=== PATIENT | female | born 1945 | race Caucasian/White ===

== ENCOUNTER 2018-12-19 08:58 | Inpatient (IN) ==
--- NOTE | 2018-12-01 14:13 | PAT Medication Instructions ---
Medication Instructions Date of Service December 01, 2018 Home Medications aspirin [Ecotrin] 325 mg PO DAILY glimepiride 4 mg PO BID losartan-hydrochlorothiazide 1 tab PO QAM metformin 1,000 mg PO BID ASK your prescriber and surgeon aspirin [Ecotrin] 325 mg PO DAILY DO NOT take the morning of surgery glimepiride 4 mg PO BID losartan-hydrochlorothiazide 1 tab PO QAM metformin 1,000 mg PO BID Take evening before surgery glimepiride 4 mg PO BID metformin 1,000 mg PO BID Other Notes If you have any questions please call us at [phone] or [phone] or [phone] or [phone]
--- NOTE | 2018-12-02 13:44 | Anesthesiology Consultation ---
Date of Service December 02, 2018 Assessment & Plan (1) Encounter for pre-operative examination: Check BSG AM DOS Chart Review Chart Review: Patient seen in Pre Admission Testing Teaching & Discussion Pre-Anesthesia Teaching/Discussion Notes: Instructed NPO after midnight before surgery,except medications with 15 cc of water. Medication instructions provided according to the PAT guidelines. History Surgery Operation Date: 12/19/18 10:25 Proposed Procedures p L3-L5 Decompression and Fusion, Spinal Cord Monitoring - David Recinos DO Height/Weight Height: 5 ft 7 in Weight: 85.5 kg Allergies Allergy/AdvReac Type Severity Reaction Status Date / Time No Known Allergies Allergy Verified 11/25/18 14:09 Medications Home Medications Medication Instructions Recorded Confirmed Last Taken aspirin [Ecotrin] 325 mg PO DAILY 11/25/18 11/25/18 Unknown glimepiride 4 mg PO BID 11/25/18 11/25/18 Unknown losartan-hydrochlorothiazide 1 tab PO QAM 11/25/18 11/25/18 Unknown metformin 1,000 mg PO BID 11/25/18 11/25/18 Unknown Past Medical History Medical History Diabetes NIDDM 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); NO PERSONAL HX OF ISSUES History of blood transfusion S/P CHILDBIRTH/HEMORRHAGE History of kidney stones Hypertension Numbness and tingling RIGHT LEG D/T BULGING DISC Spinal stenosis Exercise / Class Metabolic Activity III < 4 Walking/Shop/Light housework (USES CANE PRN) Past Family History Family History Mother Family history of diabetes mellitus Grandmother (Maternal) Family history of diabetes mellitus Past Surgical History Surgical History History of cardiac cath REMOTE; NO STENTS History of carpal tunnel surgery of left wrist History of open reduction and internal fixation (ORIF) procedure MIDDLE FINGER RIGHT History of rectal surgery FISTULA REPAIR Hx of cystoscopy FOR STONE REMOVAL Hx of hysterectomy Past Anesthesia History No Family Hx of Anesthesia Complications and Other Patient states she had post-op dyspnea/"gasping" after anesthesia emergence from anal fistula. Patient subsequently had finger ORIF surgery without issue. History of PONV No Hx of PONV and Hx of Motion Sickness Social History Smoking Status: Never smoker Do You Dip or Chew Tobacco: No Hx Alcohol Use: No Hx Substance Use: No Review of Systems Patient denies chest pain, shortness of breath, reflux, cough, wheezing, palpitations. Physical Exam Vital Signs VITALS BP 126/72 P 63 TEMP 98.5 SP02 94%RA RESP 18 PHYSICAL Full neck and c-spine range of motion. Full TMJ range of motion. TMD 4 finger breaths Mallampati Score 2 Dentition: full dentures upper/lower Lungs: clear throughout to auscultation Cardiac: regular rate and rhythm, no murmurs noted Spine: normal Carotid arteries: negative bruit Extremities: no edema Testing Laboratory Results 12/02/18 14:15 12/02/18 14:15 PT 10.3 Seconds (9.0-12.0) 12/02/18 14:15 INR 1.0 (0.9-1.1) 12/02/18 14:15 APTT 25.1 Seconds (21.0-31.0) 12/02/18 14:15 Hemoglobin A1c 7.5 % (4.5-5.6) H 12/02/18 14:15 Blood Type A Positive 12/02/18 14:15 Antibody Screen NEGATIVE 12/02/18 14:15 12/06/18 urine culture: >100,000 gram negative jessi/klebsiella pneumoniae (surgeon aware) *Surgeon aware of elevated hgba1c/abnormal urine culture* Electrocardiogram Date: 12/02/18 SB with sinus arrhythmia at 56bpm. NS TWA. Chest X-Ray Date: 12/03/18 Findings: + NAD Prominent pericardial fat pad on lateral view.
--- NOTE | 2018-12-02 14:44 | XRay Report ---
XR chest Pre-admission PA/Lat CLINICAL HISTORY: 73 years-old Female presenting with preoperative assessment. TECHNIQUE: PA and lateral views of the chest were obtained. COMPARISON: None. FINDINGS: Cardiomediastinal silhouette normal. Lungs and pleural spaces clear. Prominent pericardial fat pad on lateral view. Osseous structures normal. Upper abdomen normal. IMPRESSION: 1. No acute cardiopulmonary disease. Electronically signed by: Quique Ulloa M.D. 12/02/2018 2:43 PM
[2018-12-02 15:16] LABS: Basophils # (auto) 0.01 K/uL (0-0.2); Basophils % (auto) 0.1 %; Eosinophils # (auto) 0.13 K/uL (0-0.5); Eosinophils % (auto) 1.7 %; Hemoglobin 12.2 g/dL (12.0-16.0); Immature Granulocytes # (auto) 0.04 K/uL (0.00-0.02); Immature Granulocytes % (auto) 0.5 %; Lymphocytes # (auto) 2.08 K/uL (1.2-3.4); Lymphocytes % (auto) 27.4 %; Mean Corpuscular Hgb Conc 33.9 g/dL (32-36); Mean Corpuscular Volume 86.3 fL (80-100); Mean Platelet Volume 9.8 fL (7.4-10.4); Monocytes # (auto) 0.67 K/uL (0.11-0.59); Monocytes % (auto) 8.8 %; Neutrophils # (auto) 4.65 K/uL (1.4-6.5); Neutrophils % (auto) 61.5 %; Platelet Count 297 K/uL (130-400); RDW Coefficient of Variation 14.2 % (11.5-14.5); RDW Standard Deviation 45.3 fL (36.4-46.3); Red Blood Count 4.17 M/uL (4.2-5.4); White Blood Count 7.58 K/uL (4.8-10.8)
[2018-12-02 15:25] LABS: Calcium 9.3 mg/dl (8.5-10.1); Creatinine Clr Calc Pharmacy 60.3 ml/min; Est GFR (African American) 71.1; Est GFR (Non-African American) 61.3; Partial Thromboplastin Ratio 0.9; Partial Thromboplastin Time 25.1 Seconds (21.0-31.0); Potassium 3.9 mmol/L (3.5-5.1); Prothrombin Time 10.3 Seconds (9.0-12.0)
[2018-12-03 07:08] LABS: Estimated Average Glucose 169 mg/dl; Hemoglobin A1C 7.5 % (4.5-5.6)
[~2018-12-19 08:58] MED LIST: LR 15ML/HR IV SCH; fentaNYL citrate 100 MCG/2 ML VIAL ONE
[2018-12-19] MEDS ORDERED: ePHEDrine sulfate 50 MG/ML AMP IV PRN (10:15)
[2018-12-19] MEDS ORDERED: fentaNYL citrate 100 MCG/2 ML VIAL IV PRN (10:15)
[2018-12-19] MEDS ORDERED: ATROPINE SULFATE 0.1 MG/ML 10ML SYR IV PRN (10:15)
[2018-12-19] MEDS ORDERED: ONDANSETRON INJ 2 MG/ML 2 ML VIAL IV PRN ×2 (10:15→14:34)
--- NOTE | 2018-12-19 10:18 | History & Physical Bridge Note ---
Date of Service December 19, 2018 History & Physical Bridge Note I have examined the patient, reviewed the History & Physical and in the interval since the performance of the History & Physical I have noted the following changes of clinical significance: no changes noted
--- NOTE | 2018-12-19 10:19 | History & Physical Report ---
Date of Service December 19, 2018 Assessment & Plan (1) Spinal stenosis, lumbar region with neurogenic claudication: 3 to L5 decompression and fusion Present on Admission?: Yes History of Present Illness Chief Complaint: Back and leg pain Primary Care Provider: Gm Betancourt This is a 73-year-old female who presents with chronic persistent back and leg pain. After failing extensive course of nonoperative care is here for surgical intervention. Allergies Allergy/AdvReac Type Severity Reaction Status Date / Time No Known Allergies Allergy Verified 12/19/18 09:41 Home Medications Home Medications Medication Instructions Recorded Confirmed Type aspirin [Ecotrin] 325 mg PO DAILY 11/25/18 12/19/18 History glimepiride 4 mg PO BID 11/25/18 12/19/18 History losartan-hydrochlorothiazide 1 tab PO QAM 11/25/18 12/19/18 History metformin 1,000 mg PO BID 11/25/18 12/19/18 History enoxaparin [Lovenox] 80 mg SUBCUT Q12H 12/19/18 12/19/18 History Past Med/Surg History Family History Mother Family history of diabetes mellitus Grandmother (Maternal) Family history of diabetes mellitus Social History Preferred Language: Urdu Communication Ability: Effective Beliefs That Will Affect Care: None marital status: / Current Living Situation: Alone current occupational status: retired Feels Safe at Home: Yes Safety Concerns: Feels Safe At This Time Smoking Status: Never smoker Do You Dip or Chew Tobacco: No Second Hand Exposure: No Hx Alcohol Use: No Hx Substance Use: No Physical Exam Physical Exam: Patient is alert and oriented neurologically intact. Results & Data Vital Signs (Past 12 Hours) Vital Signs Temp Pulse Resp BP Pulse Ox 12/19/18 09:42 36.9 C 70 20 110/86 96
[2018-12-19] MEDS ORDERED: CEFAZOLIN 2,000 MG/15 ML IV PUSH IV ONE (10:26)
[2018-12-19] MEDS ORDERED: BUPIVACAINE/EPINEPHRINE 0.5% MPF 1:200,000 30 ML VIAL ONE (10:39)
[2018-12-19] MEDS ORDERED: BACITRACIN INJ 50,000 UNIT VIAL ONE (10:39)
[2018-12-19] MEDS ORDERED: LIDOCAINE HCL 2% 2 ML VIAL/AMP(20MG/ML) INFIL ONE (11:32)
[2018-12-19] MEDS ORDERED: PROPOFOL IV EMULSION 10 MG/ML 20 ML VIAL IV ONE (11:32)
[2018-12-19] MEDS ORDERED: ROCURONIUM BROMIDE 10 MG/ML 5 ML VIAL ONE (11:32)
[2018-12-19] MEDS ORDERED: ONDANSETRON INJ 2 MG/ML 2 ML VIAL ONE ×2 (11:32→12:54)
[2018-12-19] MEDS ORDERED: DEXAMETHASONE SOD INJ 4 MG/ML VIAL ONE (11:32)
[2018-12-19] MEDS ORDERED: HYDROmorphone INJ 2 MG/ML SYR/VIAL ONE (11:33)
[2018-12-19] MEDS ORDERED: FLOSEAL HEMOSTATIC MATRIX 10ML TOP ONE (12:00)
[2018-12-19] MEDS ORDERED: GLYCOPYRROLATE 0.2 MG/ML VIAL ONE (12:54)
[2018-12-19] MEDS ORDERED: NEOSTIGMINE METHYLSULFATE 1 MG/ML 10ML VIAL ONE (12:54)
--- NOTE | 2018-12-19 12:58 | Operative Report ---
Post Operative Report Pre & Post Diagnosis Operation Date: 12/19/18 10:25 Pre-Op Diagnosis: Spinal stenosis, lumbar region with neurogenic claudication Spondylolisthesis L4-5 Post-Op Diagnosis: Same Procedure Operation Date: 12/19/18 10:25 Actual Procedures #1 lumbar decompression with bilateral medial facetectomies foraminotomies L2-3 L3-4 L4-5 per #2 posterior spinal fusion L3-4 L4-5 per #3 placement posterior instrumentation L3-4 L4-5 per #4 interbody fusion L4-5 per #5 placement of peek cage 12 x 22 mm at L4-5 per #6 placement of local autograft in the posterior lateral gutters. #7 patient infuse collagen sponge, master graft in the posterior lateral gutters and ostial amp and interbody space. 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 Description of Procedure Patient was met with identified and informed consent obtained. Patient was then taken to the operative suite underwent intubation placed in the prone position the Brice table on top of the Stephon frame. All bony prominences well-padded eyes inspected to ensure no external pressure placed upon the peer at this point the lumbar spine was prepped and draped in a normal sterile fashion. Sharp dissection with the assistance of Bovie cautery was performed down to and exposing the lamina and transverse processes of L3-L4-L5 bilaterally. From a caudal to cephalad fashion complete laminectomy of L4 L3 and partial laminectomy of L2 was performed including bilateral medial facetectomies and foraminotomies as well as addressing of herniated free fragment at L4-5 on the right. After complete decompression pedicle screws were then placed in L3-L4-L5 bilaterally with assistance of fluoroscopy and appropriately size jessi placed. By way of a transforaminal approach on the right complete discectomy was performed in plate graded to subcortical bleeding bone and a 12 x 22 mm peek cage filled with osteo-amp bone graft tapped in position. The rods were then locked in final position bilaterally. The transverse processes of L3-L4-L5 bur to subcortical bleeding bone. Infuse collagen sponge mass graft local autograft placed in the posterior lateral gutters. 15 round MARS drain inserted. The incision was then closed with 1 Vicryl in the fascia 2-0 Vicryl subcutaneous layer and 4-0 Monocryl for final skin closure. Steri-Strip sterile dressings placed. Patient will continue PACU stable history please note Ellie Rutledge present at the entire procedure involved the patient positioning complex portions of the surgery and final skin closure. Lastly spinal cord monitoring was utilized that procedure no changes noted. I attest to the content of the Intraoperative Record and any orders documented therein. Any exceptions are noted below.
--- NOTE | 2018-12-19 13:32 | Fluoroscopy Report ---
FL lumbar spine 2-3V CLINICAL HISTORY: 73 years-old Female presenting with L3-L5 DECOMP/FUSION. TECHNIQUE: 2 fluoroscopic image(s) recorded as part of an intraoperative procedure. COMPARISON: MR from 11/16/2018. FINDINGS/IMPRESSION: Bilateral posterior transpedicular screw and jessi fixation of L3-L5 new from prior exam. Laminectomy d efects at L3 and L4. Interbody spacer at L4-5. Normal anatomic alignment. Please see surgical report for further details. Fluoroscopy dosage (mGy): 12.55. Fluoroscopy time: 16.6 seconds. Number or time of high level fluoroscopy (HLF), digital spot, or digital subtraction images: 0. Electronically signed by: Quique Ulloa M.D. 12/19/2018 1:31 PM
--- NOTE | 2018-12-19 14:04 | Anesthesiology Progress Note ---
Date of Service December 19, 2018 Anesthesia Post Procedure Vital Signs Vital Signs: Temp Pulse Pulse Resp BP Pulse Ox 12/19/18 14:00 65 13 140/61 99 12/19/18 13:50 98.4 F 71 15 158/92 H 99 12/19/18 13:40 76 15 159/74 H 100 12/19/18 13:30 68 18 158/72 H 100 12/19/18 13:20 72 18 158/76 H 100 12/19/18 13:14 99.3 F 72 18 168/71 H 100 12/19/18 09:42 98.4 F 70 20 110/86 96 Pain Intensity Lower Back: Pain Intensity: 2 Right Leg: Pain Intensity: 2 Transfer of Care Handoff Completed per policy Notes Mental Status: alert / awake / arousable and participated in evaluation Patient Amnestic to Procedure: Yes Nausea / Vomiting: adequately controlled Pain: adequately controlled Airway Patency, RR, SpO2: stable & adequate BP & HR: stable & adequate Hydration State: stable & adequate Anesthetic Complications: no major complications apparent and Pt Satisfied with anesthetic care
[2018-12-19] MEDS ORDERED: PROMETHAZINE HCL 12.5 MG in SODIUM CHLORIDE 0.9% 50 ML IV PRN (14:34)
[2018-12-19] MEDS ORDERED: BISACODYL 10 MG SUPP PR PRN (14:34)
[2018-12-19] MEDS ORDERED: FAMOTIDINE 20 MG TAB PO PRN (14:34)
[2018-12-19] MEDS ORDERED: DO NOT ADMINISTER FLU VACCINE PRN (14:34)
[2018-12-19] MEDS ORDERED: ONDANSETRON 4 MG TAB PO PRN (14:34)
[2018-12-19] MEDS ORDERED: TRAMADOL HCL 50 MG TABLET PO PRN (14:34)
[2018-12-19] MEDS ORDERED: ALUMINUM/MAGNESIUM SUSP 30 ML UDC PO PRN (14:34)
[2018-12-19] MEDS ORDERED: METOCLOPRAMIDE HCL INJ 5 MG/ML 2 ML VIAL IV PRN (14:34)
[2018-12-19] MEDS ORDERED: ACETAMINOPHEN 1,000 MG/100 ML VIAL IV PRN (14:34)
[2018-12-19] MEDS ORDERED: MAGNESIUM HYDROXIDE SUSP 30 ML UDC PO PRN (14:34)
[2018-12-19] MEDS ORDERED: DO NOT ADMINISTER PNEUMOCOCCAL VACCINE PRN (14:34)
[2018-12-19] MEDS ORDERED: HYDROmorphone INJ 0.5 MG/0.5 ML SYR IV PRN (14:34)
[2018-12-19] MEDS ORDERED: SOD PHOSPHATE/SOD BIPHOSPHATE ENEMA 132 ML BTL PR PRN (14:34)
[2018-12-19] MEDS ORDERED: LORazepam 0.5 MG/1 ML VIAL IV PRN (14:34)
[2018-12-19] MEDS: OXYCODONE HCL IR 5 MG TAB (IMMEDIATE RELEASE) PO PRN ×2 (16:17→22:15)
[2018-12-19] MEDS: SODIUM CHLORIDE 0.9% 1000ML 1,000 ML IV SCH ×2 (16:19→23:25)
--- NOTE | 2018-12-19 16:57 | Hospitalist Consultation ---
Date of Consultation December 19, 2018 Assessment & Plan (1) Spinal stenosis, lumbar region with neurogenic claudication: - S/p lumbar decompression/fusion L3-L5 - Pain control and bowel regimen per primary team - Diet as tolerated - Antiemetics on board - PT/OT consulted - Continue sandy cath for now (2) HTN (hypertension): - Cont losartan/HCTZ BP is well controlled currently. (3) DM II (diabetes mellitus, type II), controlled: - Cont ISS with accuchecks, holding glimepiride and metformin for now. -Patient received dose of glimepiride this afternoon, discussion was held regarding holding this medication during the rest of her inpatient stay and that she can resume this upon discharge (4) Factor V deficiency: -Home medication of full dose aspirin daily, currently on hold (5) DVT prophylaxis: teds, scds, no chemical ppx for now, history of factor V Leiden deficiency, per primary team Thank you for involving medicine in the care of Ms. Weiss. Please do not hesitate to call with questions or concerns. We will follow along. Supervising Physician Co-Signing Physician Notes Attending Attestation and Consult Note: Pt seen/examined, chart reviewed, care plan d/w SLADE Islas. I agree w/ the storm components of her consult documentation except - would HOLD her HCTZ/losartan due to low-normal BPs and acute blood loss from the surgery. I saw the patient on the orthopedic floor several hours post-op. She was sitting in the chair. Had mild back pain. RLE pain (radicular) was improved post-op. Denied dyspnea, chest pain, abd pain. Was hyperglycemic post-op today. PMH, PSH, allergies, meds, sochx, famhx, ros - reviewed VSS gen - NAD, mild hoarse voice mouth - MMM, no posterior pharyngeal swelling heart - RRR, s1 s2 lungs - mildly decreased BS bases; otherwise CTA b/l abd - soft NT BS+ ext - no edema neuro - strength 5/5 both legs fingerstick blood sugars - high A/P 1. s/p lumbar decompression-fusion 2. uncontrolled T2DM - add lantus 15 units daily; increase novolog correction factor to 20 and carb ratio to 1:6; anticipate hyperglycemia at least another 24 hours due to perioperative steroids 3. HTN - hold HCTZ/ARB due to blood loss and low-normal BPs 4. anticipated acute blood loss anemia - CBC in am Josue Anderson MD History of Present Illness Reason for Consultation: Medical management Requesting Physician: Dr. David Recinos Attending Physician: David Recinos, DO History of Present Illness This is a 73 yo F with PMHx of DM II, HTN, factor V deficiency, nephrolithiasis and spinal stenosis s/p lumbar decompression fusion by Dr. Recinos on 12/19/18. The patient was seen at bedside with her family present. She reports doing well. She does have some lower back pain which pain medication has been controlling, she took this about 1 hour ago. Patient notes some pain coming in the right leg. She denies any numbness or tingling down into her toes, and good sensation to light touch bilaterally. Patient is tolerating diet without difficulty. She did take 2 glimepiride tablets about 1 hour ago as well. We discussed holding this and using insulin sliding scale and Accu-Cheks during the rest of her hospital stay. She is in agreement. Allergies Allergy/AdvReac Type Severity Reaction Status Date / Time No Known Allergies Allergy Verified 12/19/18 09:41 Home Medications Home Medications Medication Instructions Recorded Confirmed Type aspirin [Ecotrin] 325 mg PO DAILY 11/25/18 12/19/18 History glimepiride 4 mg PO BID 11/25/18 12/19/18 History losartan-hydrochlorothiazide 1 tab PO QAM 11/25/18 12/19/18 History metformin 1,000 mg PO BID 11/25/18 12/19/18 History enoxaparin [Lovenox] 80 mg SUBCUT Q12H 12/19/18 12/19/18 History oxycodone 5 mg PO Q4H PRN #3 tab 12/19/18 Rx tramadol 50 mg PO Q4H PRN #3 tab 12/19/18 Rx Patient History Family History Mother Family history of diabetes mellitus Grandmother (Maternal) Family history of diabetes mellitus Social History Preferred Language: [place] Communication Ability: Effective Beliefs That Will Affect Care: None marital status: / Current Living Situation: Alone current occupational status: retired Feels Safe at Home: Yes Safety Concerns: Feels Safe At This Time Smoking Status: Never smoker Do You Dip or Chew Tobacco: No Second Hand Exposure: No Hx Alcohol Use: No Hx Substance Use: No Review of Systems Review of Systems: Constitutional: No fever, sweats or chills Eyes: No diplopia, no worsening or blurred vision ENT: normal hearing, no trouble swallowing Respiratory: No cough, sputum, dyspnea at rest or on exertion Cardiovascular: No chest pain, tightness or palpitations Abdomen: No pain, nausea, vomiting, diarrhea or constipation Musculoskeletal: No joint pain, calf pain, swelling Back: Lumbar mild pain, dressing C/D/I Neurologic: No weakness, numbness/tingling, or balance problems Skin: No rash or itch Physical Exam Physical Exam: General: awake, alert, no apparent distress, + overweight Head: Normocephalic, atraumatic ENT: PERRL, EOMI, no pharyngeal exudate, mucous membranes moist Chest: Clear to auscultation, on room air, no adventitious breath sounds Cardiac: Regular rate and rhythm, no murmur, no JVD, normal peripheral pulses, good capillary refill Abdominal: NABS x 4 quadrants, soft, nontender to palpation, no rebound, guarding or tenderness Extremities: Normal inspection, no peripheral edema or erythema, calfs nontender to palpation Back: Dressing C/D/I Neuro: AAO x 3, strength intact bilaterally and related 5/5, no motor deficits, speech is clear, no peripheral sensory deficits Skin: no rash or erythema Results & Data Vital Signs (Past 12 Hours) Vital Signs Temp Pulse Pulse Resp BP Pulse Ox Pulse Ox 12/19/18 15:14 68 16 119/67 100 12/19/18 14:41 61 19 120/66 100 12/19/18 14:15 36.8 C 67 16 130/68 95 95 12/19/18 14:00 65 13 140/61 99 12/19/18 13:50 36.9 C 71 15 158/92 H 99 12/19/18 13:40 76 15 159/74 H 100 12/19/18 13:30 68 18 158/72 H 100 12/19/18 13:20 72 18 158/76 H 100 12/19/18 13:14 37.4 C 72 18 168/71 H 100 12/19/18 09:42 36.9 C 70 20 110/86 96 PG Care Time/CCT Total # of Minutes Spent Total Time Spent with Patient: Total time spent is greater than 50% in coordination of care (as documented) at patient's floor/unit and/or counseling patient:
[2018-12-19] MEDS ORDERED: GLIMEPIRIDE 2 MG TAB PO SCH (17:00)
[2018-12-19] MEDS ORDERED: DEXTROSE 50% 50 ML SYRINGE IV PRN (17:06)
[2018-12-19] MEDS ORDERED: GLUCOSE 10 TABS/TUBE PO PRN (17:06)
[2018-12-19] MEDS ORDERED: CARBOHYDRATES FOR HYPOGLYCEMIA PO PRN (17:06)
[2018-12-19] MEDS ORDERED: GLUCOSE 40% GEL 15 GM TUBE PO PRN (17:06)
[2018-12-19] MEDS ORDERED: GLUCAGON FOR INJ 1 MG VIAL SQ PRN (17:06)
[2018-12-19] MEDS: CEFAZOLIN 2000MG 2,000 MG/15 ML SYR IV SCH (18:17)
[2018-12-19] MEDS ORDERED: COUGH DROP (SUGAR FREE) LOZ 24 LOZ/1 BOX BUCCAL ONE (19:41)
[2018-12-19] MEDS ORDERED: COUGH DROP (SUGAR FREE) LOZ 24 LOZ/1 BOX BUCCAL PRN (19:48)
[2018-12-19] MEDS: DOCUSATE SODIUM/SENNA 50/8.6MG TAB PO SCH (21:07)
[2018-12-19] MEDS: INSULIN ASPART 100 UNITS/ML 3 ML PEN SC SCH (21:10)
[2018-12-20] MEDS: CEFAZOLIN 2000MG 2,000 MG/15 ML SYR IV SCH (03:57)
[2018-12-20] MEDS: POLYETHYLENE (MIRALAX) 17 GM PACK PO SCH ×4 (05:28→23:49)
[2018-12-20] MEDS: SODIUM CHLORIDE 0.9% 1000ML 1,000 ML IV SCH (05:32)
[2018-12-20 06:18] LABS: Hematocrit (blood only) 27.6 % (37-47); Immature Granulocytes # (auto) 0.04 K/uL (0.00-0.02); Immature Granulocytes % (auto) 0.4 %; Lymphocytes # (auto) 0.98 K/uL (1.2-3.4); Lymphocytes % (auto) 10.9 %; Mean Corpuscular Hgb Conc 32.6 g/dL (32-36); Mean Corpuscular Volume 88.5 fL (80-100); Mean Platelet Volume 10.1 fL (7.4-10.4); Monocytes # (auto) 0.68 K/uL (0.11-0.59); Monocytes % (auto) 7.5 %; Neutrophils # (auto) 7.31 K/uL (1.4-6.5); Neutrophils % (auto) 81.2 %; Platelet Count 211 K/uL (130-400); RDW Coefficient of Variation 14.2 % (11.5-14.5); Red Blood Count 3.12 M/uL (4.2-5.4); White Blood Count 9.01 K/uL (4.8-10.8)
[2018-12-20 06:45] LABS: BUN Creatinine Ratio 17.7 (10-20); Calcium 8.3 mg/dl (8.5-10.1); Creatinine Clr Calc Pharmacy 57.4 ml/min; Est GFR (African American) 66.7; Est GFR (Non-African American) 57.5; Potassium 3.9 mmol/L (3.5-5.1)
[2018-12-20] MEDS: ASPIRIN 325 MG ECTAB PO SCH (08:07)
--- NOTE | 2018-12-20 08:12 | Anesthesiology Progress Note ---
Date of Service December 20, 2018 Anesthesia Post Procedure Vital Signs Vital Signs: Temp Pulse Pulse Resp BP Pulse Ox Pulse Ox 12/20/18 06:53 36.8 C 67 18 108/63 96 12/20/18 04:00 36.8 C 66 16 116/83 96 12/19/18 23:00 36.6 C 72 18 114/65 95 12/19/18 19:59 36.8 C 71 18 115/66 95 12/19/18 17:09 36.5 C 69 17 125/69 99 12/19/18 15:14 68 16 119/67 100 12/19/18 14:41 61 19 120/66 100 12/19/18 14:15 36.8 C 67 16 130/68 95 95 12/19/18 14:00 65 13 140/61 99 12/19/18 13:50 36.9 C 71 15 158/92 H 99 12/19/18 13:40 76 15 159/74 H 100 12/19/18 13:30 68 18 158/72 H 100 12/19/18 13:20 72 18 158/76 H 100 12/19/18 13:14 37.4 C 72 18 168/71 H 100 12/19/18 09:42 36.9 C 70 20 110/86 96 Pain Intensity Lower Back: Pain Intensity: 7 Right Leg: Pain Intensity: 3 Notes Mental Status: alert / awake / arousable and participated in evaluation Nausea / Vomiting: adequately controlled Pain: adequately controlled Airway Patency, RR, SpO2: stable & adequate BP & HR: stable & adequate Hydration State: stable & adequate
[2018-12-20] MEDS: INSULIN GLARGINE SOLOSTAR 100 UNITS/ML 3 ML PEN SC SCH (08:40)
[2018-12-20] MEDS: INSULIN ASPART 100 UNITS/ML 3 ML PEN SC SCH ×4 (08:40→21:42)
--- NOTE | 2018-12-20 09:47 | Orthopedic Progress Note ---
Date of Service December 20, 2018 Assessment & Plan (1) Spinal stenosis, lumbar region with neurogenic claudication: This time we will continue physical therapy monitor MARS output anticipate discharge home the next few days. Present on Admission?: Yes Subjective Patient's back pain is controlled leg symptoms markedly improved. Physical Exam Physical Exam: Patient has good strength testing appears comfortable. Results & Data Vital Signs (Past 12 Hours) Vital Signs Temp Pulse Resp BP Pulse Ox 12/20/18 06:53 36.8 C 67 18 108/63 96 12/20/18 04:00 36.8 C 66 16 116/83 96 12/19/18 23:00 36.6 C 72 18 114/65 95
--- NOTE | 2018-12-20 13:21 | Hospitalist Progress Note ---
Date of Service December 20, 2018 Assessment & Plan (1) Spinal stenosis, lumbar region with neurogenic claudication: - S/p lumbar decompression/fusion L3-L5 on 12/19/18, POD#1. - Pain control & bowel regimen per primary team. - DVT ppx: holding in setting of spinal surgery. - PT/OT evaluation. (2) Acute anemia: - Hemoglobin trending down in setting of recent procedure/IV fluids. - Monitor CBC qAM. (3) DM II (diabetes mellitus, type II), controlled: - Most recent A1C was 7.5. - Will increase SSI coverage due to hyperglycemia; increase Lantus to 15 units qAM, 10 units qPM. - Holding home Glimepiride & Metformin. (4) HTN (hypertension): - Holding home Losartan/HCTZ in setting of recent procedure -- BP has been borderline low at times. 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 (6) DVT prophylaxis: - TEDs, SCDs, Aspirin 325 mg daily; ppx for ortho team. Dispo: Will continue to follow. Supervising Physician Co-Signing Physician Notes Attending Attestation: Chart reviewed, care plan d/w PA Citlali Holden. I agree w/ the storm components of her consult documentation. POD #1 s/p lumbar decompression-fusion. Remains with uncontrolled T2DM - agree with titration of lantus. Continue to hold HCTZ/ARB due to blood loss and low-normal BPs. Acute blood loss anemia - Hb today is 9 (3 gram drop from prior) - once moving bowels consider ferrous sulfate supplementation. Josue Anderson MD Subjective Pt. is doing well overall. Pain in spine well controlled. Is passing gas, has not had a BM. Denies chest pain, SOB, nausea/vomiting. Review of Systems Review of Systems: All systems reviewed & are unremarkable except as noted in HPI & below Constitutional: no fever, no chills, no fatigue and no weakness Respiratory: no cough, no dyspnea and no dyspnea on exertion Cardiovascular: no chest pain, no palpitations and no edema Gastrointestinal: + constipation; no abdominal pain, no nausea and no vomiting Genitourinary: no difficulty urinating Musculoskeletal: + back pain; no joint pain Integumentary: no non-healing lesions Allergy / Immunological: no rash Physical Exam Physical Exam: General: Resting comfortably HEENT: NC/AT; PERRLA with EOMI; [place] conjunctiva, MMM. No erythema of posterior pharynx Neck: Supple and nontender Cardiac: RRR Lungs: CTA bilaterally Abdomen: Bowel normoactive X 4; Nontender to palpation Extremities: Warm. No edema present Neuro: No focal weakness Skin: No rash Results & Data Vital Signs (Past 12 Hours) Vital Signs Temp Pulse Resp BP Pulse Ox 12/20/18 06:53 36.8 C 67 18 108/63 96 12/20/18 04:00 36.8 C 66 16 116/83 96 Laboratory Results 12/20/18 12/20/18 12/20/18 Range/Units 11:57 08:10 05:52 WBC (4.8-10.8) K/uL RBC (4.2-5.4) M/uL Hgb (12.0-16.0) g/dL Hct (37-47) % MCV (80-100) fL MCH (25-34) pg MCHC (32-36) g/dL RDW Std Deviation (36.4-46.3) fL RDW Coeff of Trace (11.5-14.5) % Plt Count (130-400) K/uL MPV (7.4-10.4) fL Immature Gran % (Auto) % Neut % (Auto) % Lymph % (Auto) % [place] % (Auto) % Eos % (Auto) % Baso % (Auto) % Immature Gran # (Auto) (0.00-0.02) K/uL Neut # (Auto) (1.4-6.5) K/uL Lymph # (Auto) (1.2-3.4) K/uL [place] # (Auto) (0.11-0.59) K/uL Eos # (Auto) (0-0.5) K/uL Baso # (Auto) (0-0.2) K/uL Sodium (136-145) mmol/L Potassium (3.5-5.1) mmol/L Chloride (98-107) mmol/L Carbon Dioxide (21-32) mmol/L Anion Gap (3-11) BUN (7-18) mg/dl Creatinine (0.6-1.2) mg/dl Est Cr Clr Drug Dosing ml/min Est GFR ( Amer) Est GFR (Non-Af Amer) BUN/Creatinine Ratio (10-20) Glucose (70-99) mg/dl POC Glucose 167 H 238 H (70-99) Calcium (8.5-10.1) mg/dl Hepatitis C Ab Screen Neg (Neg) 12/20/18 12/20/18 12/19/18 Range/Units 05:52 05:52 20:54 WBC 9.01 (4.8-10.8) K/uL RBC 3.12 L (4.2-5.4) M/uL Hgb 9.0 L (12.0-16.0) g/dL Hct 27.6 L (37-47) % MCV 88.5 (80-100) fL MCH 28.8 (25-34) pg MCHC 32.6 (32-36) g/dL RDW Std Deviation 46.0 (36.4-46.3) fL RDW Coeff of Trace 14.2 (11.5-14.5) % Plt Count 211 (130-400) K/uL MPV 10.1 (7.4-10.4) fL Immature Gran % (Auto) 0.4 % Neut % (Auto) 81.2 % Lymph % (Auto) 10.9 % [place] % (Auto) 7.5 % Eos % (Auto) 0.0 % Baso % (Auto) 0.0 % Immature Gran # (Auto) 0.04 H (0.00-0.02) K/uL Neut # (Auto) 7.31 H (1.4-6.5) K/uL Lymph # (Auto) 0.98 L (1.2-3.4) K/uL [place] # (Auto) 0.68 H (0.11-0.59) K/uL Eos # (Auto) 0.00 (0-0.5) K/uL Baso # (Auto) 0.00 (0-0.2) K/uL Sodium 139 (136-145) mmol/L Potassium 3.9 (3.5-5.1) mmol/L Chloride 106 (98-107) mmol/L Carbon Dioxide 26 (21-32) mmol/L Anion Gap 6.0 (3-11) BUN 17 (7-18) mg/dl Creatinine 0.97 (0.6-1.2) mg/dl Est Cr Clr Drug Dosing 57.4 ml/min Est GFR ( Amer) 66.7 Est GFR (Non-Af Amer) 57.5 BUN/Creatinine Ratio 17.7 (10-20) Glucose 185 H (70-99) mg/dl POC Glucose 281 H (70-99) Calcium 8.3 L (8.5-10.1) mg/dl Hepatitis C Ab Screen (Neg) 12/19/18 12/19/18 Range/Units 17:07 13:17 WBC (4.8-10.8) K/uL RBC (4.2-5.4) M/uL Hgb (12.0-16.0) g/dL Hct (37-47) % MCV (80-100) fL MCH (25-34) pg MCHC (32-36) g/dL RDW Std Deviation (36.4-46.3) fL RDW Coeff of Trace (11.5-14.5) % Plt Count (130-400) K/uL MPV (7.4-10.4) fL Immature Gran % (Auto) % Neut % (Auto) % Lymph % (Auto) % [place] % (Auto) % Eos % (Auto) % Baso % (Auto) % Immature Gran # (Auto) (0.00-0.02) K/uL Neut # (Auto) (1.4-6.5) K/uL Lymph # (Auto) (1.2-3.4) K/uL [place] # (Auto) (0.11-0.59) K/uL Eos # (Auto) (0-0.5) K/uL Baso # (Auto) (0-0.2) K/uL Sodium (136-145) mmol/L Potassium (3.5-5.1) mmol/L Chloride (98-107) mmol/L Carbon Dioxide (21-32) mmol/L Anion Gap (3-11) BUN (7-18) mg/dl Creatinine (0.6-1.2) mg/dl Est Cr Clr Drug Dosing ml/min Est GFR ( Amer) Est GFR (Non-Af Amer) BUN/Creatinine Ratio (10-20) Glucose (70-99) mg/dl POC Glucose 219 H 163 H (70-99) Calcium (8.5-10.1) mg/dl Hepatitis C Ab Screen (Neg) PG Care Time/CCT Total # of Minutes Spent Total Time Spent with Patient: Total time spent is greater than 50% in coordination of care (as documented) at patient's floor/unit and/or counseling patient:
[2018-12-20] MEDS: OXYCODONE HCL IR 5 MG TAB (IMMEDIATE RELEASE) PO PRN ×2 (15:26→21:16)
[2018-12-20] MEDS ORDERED: INSULIN GLARGINE SOLOSTAR 100 UNITS/ML 3 ML PEN SC SCH (21:00)
[2018-12-20] MEDS: DOCUSATE SODIUM/SENNA 50/8.6MG TAB PO SCH (21:39)
[2018-12-21] MEDS: OXYCODONE HCL IR 5 MG TAB (IMMEDIATE RELEASE) PO PRN ×3 (04:32→22:47)
[2018-12-21] MEDS: POLYETHYLENE (MIRALAX) 17 GM PACK PO SCH ×4 (05:40→23:59)
[2018-12-21 06:13] LABS: Hematocrit (blood only) 27.7 % (37-47); Hemoglobin 9.2 g/dL (12.0-16.0); Mean Corpuscular Hgb Conc 33.2 g/dL (32-36); Mean Corpuscular Volume 88.5 fL (80-100); Mean Platelet Volume 9.8 fL (7.4-10.4); Platelet Count 205 K/uL (130-400); RDW Coefficient of Variation 14.5 % (11.5-14.5); RDW Standard Deviation 47.4 fL (36.4-46.3); Red Blood Count 3.13 M/uL (4.2-5.4); White Blood Count 10.02 K/uL (4.8-10.8)
[2018-12-21 06:55] LABS: Creatinine Clr Calc Pharmacy 67.1 ml/min; Est GFR (African American) 80.5; Est GFR (Non-African American) 69.5
[2018-12-21] MEDS: INSULIN ASPART 100 UNITS/ML 3 ML PEN SC SCH ×4 (08:01→21:07)
[2018-12-21] MEDS: INSULIN GLARGINE SOLOSTAR 100 UNITS/ML 3 ML PEN SC SCH ×2 (08:04→21:06)
[2018-12-21] MEDS: LOSARTAN/HCTZ 50/12.5MG TAB PO SCH (08:07)
[2018-12-21] MEDS: ASPIRIN 325 MG ECTAB PO SCH (08:07)
[2018-12-21] MEDS ORDERED: PHARMACY GLYCEMIC MGMT CONSULT PRN (08:14)
--- NOTE | 2018-12-21 11:15 | Pharmacy Report ---
Glycemic Control Consultation - Date of Service December 21, 2018 - Scope Scope: Glycemic Pharmacist consulted by Citlali Sawant on 12/21 for glycemic control and to write orders per [facility] inpatient glycemic control protocol - Objective Weight: 86.319 kg Accuchecks BSG (last 24hrs): 12/20/18 12/20/18 12/20/18 11:57 17:13 21:01 Glucose POC Glucose 167 H 143 H 220 H 12/21/18 12/21/18 05:53 06:30 Glucose 172 H POC Glucose 218 H Laboratory Data (last 24hrs): 12/21/18 05:53 Potassium 4.0 Carbon Dioxide 25 Anion Gap 7.0 Creatinine 0.83 Est Cr Clr Drug Dosing 67.1 HbA1c: Hemoglobin A1c 7.5 % (4.5-5.6) H 12/02/18 14:15 - Recent Pertinent Medications Outpatient Anti-diabetic Regimen: * Glimeperide 4 mg BId, metformin 1000 mg BID * A1c = 7.5 % 12/02/18 The patient is currently receiving: * Basal insulin: Lantus 15 units qAM, 10 units qPM * Correctional Insulin: Novolog Correction per scale ACHS Goal Range: Low 110 mg/dL - High 140 mg/dL Correction Factor: 10 mg/dL/unit * Prandial insulin: Per carb ratio of 1 unit per 5 grams CHO consumed * Oral Agents: Risk Factors for Insulin Resistance: * Steroids: 10 mg Dexamethasone IV on 12/19 * Infection: * Pressors: * IVF: * Recent Surgery: POD #3 * Diet: Type 2 DM * Mechanical Ventilation: - Assessment & Plan Assessment & Plan: ASSESSMENT: * Patient was admitted on 12/19 for lumbar decompression in OR, Received 10 mg dexamethasone IV * BSGs yesterday ranged from 143-238 with 70 units of insulin (25 basal, 45 bolus) * Fasting elevated this AM 218, will increase lantus for this evening * Lunch and dinner pre-prandial BSGs were within range, novolog parameters tightened with elevated bsg in PM- will loosen slightly correction and attempt to balance basal/bolus 50/50. Effects of dexamethasone should be beginning to dissipate. PLAN FOR INPATIENT GLYCEMIC CONTROL: * Increasing Lantus to 15 units SQ AM, Scale for PM 15 units for BSG <180, 20 units for BSG >180 * Changing correction factor to 15 mg/dl/unit * Continuing carb ratio to 1 unit per 5 grams CHO consumed * Continuing goal range to Low 110 mg/dL - High 140 mg/dL * Please note that the plan above was derived based on current level of insulin resistance and hospital stress. These recommendations are appropriate for i npatient admission only. Plan of care upon discharge will need to be reassessed to avoid potential outpatient hypo/hyperglycemia. Thank you.
--- NOTE | 2018-12-21 11:28 | XRay Report ---
XR KUB/Abdomen 1 view CLINICAL HISTORY: Rule out ileus ABDOMINAL DISTENTION COMPARISON STUDY: No previous studies for comparison. FINDINGS: There is no pathologic bowel dilatation. There are postsurgical changes present within the lumbar spine. There is a surgical drain visualized. There is scattered stool within the colon. IMPRESSION: No evidence of pathologic bowel dilatation. Electronically signed by: Devon Vizcarra M.D. 12/21/2018 11:27 AM
--- NOTE | 2018-12-21 12:11 | Hospitalist Progress Note ---
Date of Service December 21, 2018 Assessment & Plan (1) Spinal stenosis, lumbar region with neurogenic claudication: - S/p lumbar decompression/fusion L3-L5 on 12/19/, POD#2. - Pain control & bowel regimen per primary team -- has not had a BM but KUB was negative. - DVT ppx: holding in setting of spinal surgery. - PT/OT evaluation. (2) Acute anemia: - Hemoglobin below baseline in setting of recent procedure/IV fluids. - Monitor CBC qAM. (3) DM II (diabetes mellitus, type II), controlled: - Most recent A1C was 7.5. - SSI coverage with Lantus. Pharmacy consulted for glycemic management due to uncontrolled BG. - Holding home Glimepiride & Metformin. (4) HTN (hypertension): - Resume home Losartan/HCTZ. 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 (6) DVT prophylaxis: - TEDs, SCDs, Aspirin 325 mg daily; ppx for ortho team. Dispo: Pt. is medically stable, will sign off. Please call with any questions. Supervising Physician Co-Signing Physician Notes Attending Attestation: Chart reviewed, care plan d/w PA Citlali LindseyMiladisyou. I agree w/ the storm components of her consult documentation. POD #2 s/p lumbar decompression-fusion. Remains with uncontrolled T2DM - Ms Holden has consulted pharmacy glycemic team. Resuming HCTZ/ARB. Acute blood loss anemia - Hb today is stable/unchanged from yesterday. Once moving bowels consider ferrous sulfate supplementation as she had 3 gram perioperative drop. VSS and other labs are stable. Josue Anderson MD Subjective Pt. is doing well, back pain controlled. Has not had a BM, is not passing gas. KUB neg for obstruction/ileus. Receiving Miralax q6hr scheduled. Review of Systems Review of Systems: All systems reviewed & are unremarkable except as noted in HPI & below Constitutional: no fever, no chills, no fatigue and no weakness Respiratory: no cough, no dyspnea and no dyspnea on exertion Cardiovascular: no chest pain, no palpitations and no edema Gastrointestinal: + constipation; no abdominal pain, no nausea and no vomiting Genitourinary: no difficulty urinating Musculoskeletal: + back pain; no joint pain Integumentary: no non-healing lesions Allergy / Immunological: no rash Physical Exam Physical Exam: General: Resting comfortably HEENT: NC/AT; PERRLA with EOMI; [place] conjunctiva, MMM. No erythema of posterior pharynx Neck: Supple and nontender Cardiac: RRR Lungs: CTA bilaterally Abdomen: Bowel normoactive X 4; Nontender to palpation Extremities: Warm. No edema present Neuro: No focal weakness Skin: No rash Results & Data Vital Signs (Past 12 Hours) Vital Signs Temp Pulse Resp BP Pulse Ox Pulse Ox 12/21/18 08:08 144/73 H 12/21/18 07:33 95 12/21/18 06:02 36.8 C 71 18 131/63 94 Laboratory Results 12/21/18 12/21/18 12/21/18 Range/Units 06:30 05:53 05:53 WBC 10.02 (4.8-10.8) K/uL RBC 3.13 L (4.2-5.4) M/uL Hgb 9.2 L (12.0-16.0) g/dL Hct 27.7 L (37-47) % MCV 88.5 (80-100) fL MCH 29.4 (25-34) pg MCHC 33.2 (32-36) g/dL RDW Std Deviation 47.4 H (36.4-46.3) fL RDW Coeff of Trace 14.5 (11.5-14.5) % Plt Count 205 (130-400) K/uL MPV 9.8 (7.4-10.4) fL Sodium 135 L (136-145) mmol/L Potassium 4.0 (3.5-5.1) mmol/L Chloride 103 (98-107) mmol/L Carbon Dioxide 25 (21-32) mmol/L Anion Gap 7.0 (3-11) BUN 17 (7-18) mg/dl Creatinine 0.83 (0.6-1.2) mg/dl Est Cr Clr Drug Dosing 67.1 ml/min Est GFR ( Amer) 80.5 Est GFR (Non-Af Amer) 69.5 BUN/Creatinine Ratio 21.0 H (10-20) Glucose 172 H (70-99) mg/dl POC Glucose 218 H (70-99) Calcium 8.0 L (8.5-10.1) mg/dl 12/20/18 12/20/18 12/20/18 Range/Units 21:01 17:13 11:57 WBC (4.8-10.8) K/uL RBC (4.2-5.4) M/uL Hgb (12.0-16.0) g/dL Hct (37-47) % MCV (80-100) fL MCH (25-34) pg MCHC (32-36) g/dL RDW Std Deviation (36.4-46.3) fL RDW Coeff of Trace (11.5-14.5) % Plt Count (130-400) K/uL MPV (7.4-10.4) fL Sodium (136-145) mmol/L Potassium (3.5-5.1) mmol/L Chloride (98-107) mmol/L Carbon Dioxide (21-32) mmol/L Anion Gap (3-11) BUN (7-18) mg/dl Creatinine (0.6-1.2) mg/dl Est Cr Clr Drug Dosing ml/min Est GFR ( Amer) Est GFR (Non-Af Amer) BUN/Creatinine Ratio (10-20) Glucose (70-99) mg/dl POC Glucose 220 H 143 H 167 H (70-99) Calcium (8.5-10.1) mg/dl PG Care Time/CCT Total # of Minutes Spent Total Time Spent with Patient: Total time spent is greater than 50% in coordination of care (as documented) at patient's floor/unit and/or counseling patient:
--- NOTE | 2018-12-21 12:56 | Orthopedic Progress Note ---
Date of Service December 21, 2018 Assessment & Plan (1) Spinal stenosis, lumbar region with neurogenic claudication: This time we will continue physical therapy monitor MARS output hopefully discharge tomorrow. Present on Admission?: Yes Subjective Back pain is controlled leg symptoms improved. Physical Exam Physical Exam: Patient is in the chair at the bedside. She is good strength testing. Appears comfortable. Results & Data Vital Signs (Past 12 Hours) Vital Signs Temp Pulse Resp BP Pulse Ox Pulse Ox 12/21/18 08:08 144/73 H 12/21/18 07:33 95 12/21/18 06:02 36.8 C 71 18 131/63 94
[2018-12-21] MEDS: ACETAMINOPHEN 500 MG TAB PO PRN (13:57)
[2018-12-21] MEDS: DOCUSATE SODIUM/SENNA 50/8.6MG TAB PO SCH (21:02)
[2018-12-21] MEDS: LORazepam 0.5 MG TAB PO PRN (21:02)
[2018-12-22] MEDS: ACETAMINOPHEN 500 MG TAB PO PRN ×2 (05:29→15:25)
[2018-12-22] MEDS: POLYETHYLENE (MIRALAX) 17 GM PACK PO SCH ×3 (05:29→17:56)
[2018-12-22 06:52] LABS: Hematocrit (blood only) 27.2 % (37-47); Hemoglobin 9.1 g/dL (12.0-16.0); Mean Corpuscular Hgb Conc 33.5 g/dL (32-36); Mean Corpuscular Volume 87.5 fL (80-100); Platelet Count 197 K/uL (130-400); RDW Coefficient of Variation 14.7 % (11.5-14.5); RDW Standard Deviation 46.6 fL (36.4-46.3); Red Blood Count 3.11 M/uL (4.2-5.4); White Blood Count 7.37 K/uL (4.8-10.8)
[2018-12-22 07:29] LABS: BUN Creatinine Ratio 16.4 (10-20); Creatinine Clr Calc Pharmacy 69.6 ml/min; Est GFR (African American) 84.2; Est GFR (Non-African American) 72.6
--- NOTE | 2018-12-22 08:28 | Orthopedic Progress Note ---
Date of Service December 22, 2018 Assessment & Plan (1) Spinal stenosis, lumbar region with neurogenic claudication: This time we will continue physical therapy monitor MARS output hopefully discharge home tomorrow. Present on Admission?: Yes Subjective Back pain is controlled leg pain improving Physical Exam Physical Exam: Patient is in the chair at the bedside. She is good strength testing. Appears comfortable. Results & Data Vital Signs (Past 12 Hours) Vital Signs Temp Pulse Resp BP Pulse Ox 12/22/18 07:19 36.8 C 78 20 116/69 98 12/21/18 23:41 36.8 C 73 17 145/69 H 96 12/21/18 21:09 99
[2018-12-22] MEDS: ASPIRIN 325 MG ECTAB PO SCH (08:59)
[2018-12-22] MEDS: LOSARTAN/HCTZ 50/12.5MG TAB PO SCH (08:59)
[2018-12-22] MEDS: INSULIN ASPART 100 UNITS/ML 3 ML PEN SC SCH ×4 (09:04→21:22)
[2018-12-22] MEDS: INSULIN GLARGINE SOLOSTAR 100 UNITS/ML 3 ML PEN SC SCH ×2 (09:05→21:22)
[2018-12-22] MEDS: OXYCODONE HCL IR 5 MG TAB (IMMEDIATE RELEASE) PO PRN ×2 (10:39→22:01)
--- NOTE | 2018-12-22 13:33 | Pharmacy Report ---
Pharmacy Glycemic Short Note 2 - Date of Service December 22, 2018 - Glycemic Short BSG Results (Last 24 hours): 12/21/18 12/21/18 12/21/18 12:05 14:06 15:04 Glucose POC Glucose 139 H 166 H 206 H 12/21/18 12/21/18 12/22/18 16:57 21:05 06:21 Glucose 189 H POC Glucose 174 H 232 H 12/22/18 12/22/18 08:14 11:54 Glucose POC Glucose 187 H 207 H OUTPATIENT ANTIDIABETIC REGIMEN: * glimperide 4 mg BID; Metformin 1000 mg BID * A1c 7.5% 12/02 ASSESSMENT: * Ms. Weiss required 88 units of insulin yesterday (35 units of basal;53 units correctional/prandial) * Fasting this AM improved but still above goal, continue to titrate insulin * Patient seems to have elevated BSGs at bedtime following dinner, previous BSGs at lunch, dinner have been acceptable although high today, therefore will slightly decrease carb ratio. PLAN FOR INPATIENT GLYCEMIC CONTROL: * Hold outpatient oral diabetes medications * Basal insulin * Lantus 20 units SQ qAM * Scale for PM * 15 units BSG 180 or less * 20 units BSG >180 * Bolus insulin * NovoLog per scale ACHS or Q6hrs while NPO * Goal Range: Low 110 mg/dL - High 140 mg/dL * Correction Factor: 15 mg/dL/unit * Nutritional / Prandial insulin per carb ratio of 1 unit per 4.5 grams CHO consumed PLAN FOR DISCHARGE: Patient's A1c slightly above typical goal of 7.0%, although given patient's age slightly less stringent goal may be acceptable, follow-up with outpatient provider to determine if patient would benefit from addition of another agent.
[2018-12-22] MEDS: DOCUSATE SODIUM/SENNA 50/8.6MG TAB PO SCH (19:43)
[2018-12-22] MEDS: LORazepam 0.5 MG TAB PO PRN (22:02)
[2018-12-23] MEDS: ASPIRIN 325 MG ECTAB PO SCH (09:00)
[2018-12-23] MEDS: LOSARTAN/HCTZ 50/12.5MG TAB PO SCH (09:00)
[2018-12-23] MEDS: INSULIN ASPART 100 UNITS/ML 3 ML PEN SC SCH (09:02)
[2018-12-23] MEDS: INSULIN GLARGINE SOLOSTAR 100 UNITS/ML 3 ML PEN SC SCH (09:03)
[2018-12-23] MEDS: ACETAMINOPHEN 500 MG TAB PO PRN (09:14)
[2018-12-23] MEDS: OXYCODONE HCL IR 5 MG TAB (IMMEDIATE RELEASE) PO PRN (10:14)
--- NOTE | 2018-12-23 12:27 | Discharge Summary ---
Date of Service December 23, 2018 Admission HPI Per Admitting Provider This is a 73-year-old female who presents with chronic persistent back and leg pain. After failing extensive course of nonoperative care is here for surgical intervention. Principal Diagnosis Lumbar spinal stenosis with neurogenic claudication Discharge Data Allergies Allergy/AdvReac Type Severity Reaction Status Date / Time No Known Allergies Allergy Verified 12/19/18 09:41 Consultations 12/19/18 14:34 Consult Case Management - Discharge Planning Routine 12/19/18 14:44 Consult Hospitalist Routine Procedures Performed Operation Date: 12/19/18 10:25 Actual Procedures p Decompression and Fusion L3-L5 , Interbody fusion L4-L5, Spinal Cord Monitoring, Application of bone morphogenetic protein(Not Applicable) - David Recinos DO Ordered Studies 12/19/18 10:25 FL fluoroscopy <1hr Routine FL lumbar spine 2-3V Routine Hospital Course (1) Spinal stenosis, lumbar region with neurogenic claudication: Patient underwent multilevel lumbar decompression fusion tolerated as well as taken to orthopedic for postoperative. Postop day and when she was up and ambulating progressed to postop day #2 and 3 progressing properly. MARS drain decreasing probably. Subsequently discharged home on postop day #5. Discharge orders instructions from the chart for further review. Total Time Total Time Spent Total Time Spent (In Minutes): 20 minutes Discharge Plan Discharge Items Patient Disposition: Home - Self-Care Reason For Visit: Spinal Stenosis, Lumbosacral Region Discharge Diagnosis: Lumbar spinal stenosis with neurogenic claudication Discharge Goals: Decrease discomfort Activity: Per 'Additional Instructions' section Non-emergency contact: Primary Care Provider Call non-emergency contact if: you have any medication questions Follow-up/Referrals: Gm Betancourt M.D. [Primary Care Provider] - Diet: Regular Addtl Provider Instructions: ACTIVITY RECOMMENDATIONS: SELF CARE INSTRUCTIONS AFTER THORACIC/LUMBAR FUSIONS 1. You may walk to your tolerance. It is good exercise for your legs and back. Expect some back and intermittent leg aches and pains. 2. You may perform "counter-top" level activities (make a sandwich, sandra with a project, etc.). 3. No bending or lifting of more than 10 pounds or back twisting of any nature (roll like a log when turning in bed). 4. You may ride in a car for 20-30 minutes at a time. No driving until after your first visit with your doctor. 5. Frequent changes of position and restricting sitting to 30 minutes at a time will help limit the amount of back spasms and stiffness you may experience. 6. You may discontinue the use of ambulatory aids (cane, crutches, etc.) once your strength and confidence allow. 7. You may chain dyer the shower and let water strike your incision when you arrive home at least once daily. Do not take a tub bath, sit in a hot tub or go into a swimming pool until after your first recheck in the office. SPECIAL CARE INSTRUCTIONS: VERY IMPORTANT TO READ AND REVIEW A. Your surgical incision has been closed with a cosmetic suture under the skin that will dissolve in about 6 weeks. In 14 days, you can use a pair of clean scissors and cut the suture that is left outside of the skin at the ends of your incision. 1. The small skin tapes can be removed 7 days after surgery if they have not fallen off by that point. 2. You may keep the wound open to air as much as possible to promote healing after post-op day number 5 unless told otherwise by your doctor. 3. If you think the wound looks like it is becoming infected (redness or worsening drainage) and/or you are experiencing fever, chill or worsening back pain and muscle spasms, contact the office so that we may evaluate you as soon as possible. B. Complications are uncommon, but please contact us if you have any signs or symptoms of: 1. wound infection (fever higher than 102.5 degrees F, redness, separation of wound, drainage, or increasing pain from the incision) 2. blood clots in legs (pain, swelling, redness and warmth in legs) 3. urinary tract infection (fever higher than 102.5 degrees F, burning upon urination or increased frequency of urination) 4. nerve problems (inability to walk on your toes or heels, numbness, loss of bowel or bladder control) 5. any other symptoms that concern you C. Please call the office at if you have any concerns or questions about your operation or recovery. D. No smoking! Smoking drastically decreases the chance of a solid fusion. E. Do not take any anti-inflammatory medications (Indocin, Advil, Motrin, Aspirin, Naprosyn, etc.) as these may inhibit the chance of a solid fusion. Tylenol is okay to take for pain. MANAGING PAIN AFTER SPINAL SURGERY 1. Narcotic medication is intended for short-term use and will be provided for surgical pain. Surgical pain usually lasts for a period of 4-6 weeks. Narcotic medication includes Percocet, Vicodin, Darvocet, Tylenol #3 or Lortab. 2. Longer-term pain is more appropriately treated with non-narcotic medication such as Tylenol ES. 3. Muscle spasm is not appropriately treated with narcotics. Muscle relaxers such as Soma, Flexeril or Skelaxin can be used along with Tylenol ES. 4. Remember that we all live with some "aches and pains". This is not unusual or uncommon after an injury or as we get older. a. Back pain is expected and may include muscle spasms for 4 to 6 weeks after surgery. The pain should gradually improve. If the pain worsens for no apparent reason, please contact the office. b. Intermittent leg pain may also be experienced and should not be concerned about unless it worsens for no apparent reason. If so, please contact the office. 5. We will provide appropriate medication within the normal guidelines of their prescribed use. We will also be very cautious and aware of potential abuse and extended duration of patients' medication needs. a. Pain medications are for your comfort and to assist with sleep and rest so that the tissue can heal. They are not provided in order to return to normal activity and should not be used through the day. To do so or worsening pain at night can result from ongoing tissue damage and development of tolerance to the prescribed medicine. 6. Please allow 2-3 days to process refills. Prescriptions will not be mailed but must be picked up at the office. FOLLOW UP VISIT: Keep your scheduled follow-up appointment. Any questions, please call the office at . Prescriptions: New tramadol 50 mg Tablet 50 mg PO Q4H PRN (Reason: Pain, Moderate) Qty: 30 RF: 0 oxycodone 5 mg Tablet 5 mg PO Q4H PRN (Reason: Pain, Severe) Qty: 30 RF: 0 lorazepam 0.5 mg Tablet 0.5 mg PO Q8H Qty: 20 RF: 0 Continued losartan-hydrochlorothiazide 100-25 mg Tablet 1 tab PO QAM RF: 0 aspirin [Ecotrin] 325 mg Tablet,Delayed Release (Dr/Ec) 325 mg PO DAILY RF: 0 metformin 1,000 mg Tablet 1,000 mg PO BID RF: 0 glimepiride 4 mg Tablet 4 mg PO BID RF: 0 enoxaparin [Lovenox] 80 mg/0.8 mL Syringe 80 mg SUBCUT Q12H RF: 0 Stand-Alone Forms: [employer], [facility] [employer]/Other Patient Handouts: Surgery Prevent DVT After Discharge Orders: Discharge Order (Routine); Ordered 12/23/18 Ordered By: David Recinos Admission Data Admit Date/Time: 12/19/18 13:27 Attending Provider: David Recinos Admit Provider: David Recinos Primary Care Provider: Gm Betancourt Other Providers: Josue Anderson Service: Surgical Services Other Interventions: Discharge Summary Assessment (RN) Last Done: 12/23/18 09:36 DC Date/Time DO NOT enter until pt leaves facility: 12/23/18 10:52
== END 2018-12-23 10:52 | disposition home health service (06) | DRG 454 ==
LOC: ASU 08:58 → 3E 13:27

== ENCOUNTER 2022-02-06 06:10 | Inpatient (IN) ==
--- NOTE | 2022-01-19 14:19 | PAT Medication Instructions ---
Medication Instructions Date of Service January 19, 2022 Home Medications Medication Instructions Recorded lorazepam 0.5 mg tablet 0.5 mg PO Q8H #20 tabs 12/23/18 oxycodone 5 mg tablet 5 mg PO Q4H PRN Pain, Severe #30 12/23/18 tabs tramadol 50 mg tablet 50 mg PO Q4H PRN Pain, Moderate 12/23/18 #30 tabs aspirin 325 mg tablet,delayed release (Ecotrin) 325 mg PO PM losartan 100 mg-hydrochlorothiazide 25 mg tablet 1 tab PO PM metformin 1,000 mg tablet 1,000 mg PO BID enoxaparin 80 mg/0.8 mL subcutaneous syringe (Lovenox) 80 mg subcut Q12H lorazepam 0.5 mg tablet 0.5 mg PO Q8H oxycodone 5 mg tablet 5 mg PO Q4H PRN Pain tramadol 50 mg tablet 50 mg PO Q4H PRN Pain albuterol sulfate 90 mcg/actuation aerosol inhaler 2 inh inhalation QID PRN Cough cholecalciferol (vitamin D3) 25 mcg (1,000 unit) tablet (Vitamin D3) 25 mcg PO QAM montelukast 10 mg tablet 10 mg PO HS ASK your prescriber and surgeon aspirin 325 mg tablet,delayed release (Ecotrin) 325 mg PO PM enoxaparin 80 mg/0.8 mL subcutaneous syringe (Lovenox) 80 mg subcut Q12H DO NOT take the morning of surgery metformin 1,000 mg tablet 1,000 mg PO BID cholecalciferol (vitamin D3) 25 mcg (1,000 unit) tablet (Vitamin D3) 25 mcg PO QAM Take morning of surgery With a small sip of water, OTHERWISE NOTHING TO EAT OR DRINK AFTER MIDNIGHT: lorazepam 0.5 mg tablet 0.5 mg PO Q8H oxycodone 5 mg tablet 5 mg PO Q4H PRN Pain(if needed) tramadol 50 mg tablet 50 mg PO Q4H PRN Pain(if needed) albuterol sulfate 90 mcg/actuation aerosol inhaler 2 inh inhalation QID PRN Cough(use if needed; please bring with you to hospital day of surgery if possible) Take evening before surgery losartan 100 mg-hydrochlorothiazide 25 mg tablet 1 tab PO PM metformin 1,000 mg tablet 1,000 mg PO BID oxycodone 5 mg tablet 5 mg PO Q4H PRN Pain(if needed) tramadol 50 mg tablet 50 mg PO Q4H PRN Pain(if needed) albuterol sulfate 90 mcg/actuation aerosol inhaler 2 inh inhalation QID PRN Cough(if needed) montelukast 10 mg tablet 10 mg PO HS Other Notes If you have any questions please call us at [phone] or [phone] or [phone] or [phone]
--- NOTE | 2022-01-30 10:22 | Anesthesiology Consultation ---
Date of Service January 30, 2022 Assessment & Plan (1) Encounter for pre-operative examination: - check BSG am DOS. - anesthesia history: "choking/difficulty breathing post-op" requiring supplemental oxygen in past; denies re-intubation. - COVID screening: Per assessment on 01/30/2022: Travel screen negative, no known COVID-19 positive contacts or current COVID-19 related symptoms in past 2 weeks. Pt vaccinated. To surgeon's discretion if pre-op COVID testing needed. Chart Review Chart Review: Acceptable Risk for Surgery and Patient seen in Pre Admission Testing Teaching & Discussion Pre-Anesthesia Teaching/Discussion Notes: Instructed NPO after midnight before surgery, except medications with 15 cc of water. Medication instructions provided according to the PAT guidelines. History Surgery Operation Date: 02/06/22 07:45 Proposed Procedures p L2-L3 Decompression and Fusion, L3-L5 Possible Re-Instrumentation, L3-L5 Possible Hardware Removal, Spinal Cord Monitoring - David Recinos, Height/Weight Height: 5 ft 7 in Weight: 77 kg Allergies Allergy/AdvReac Type Severity Reaction Status Date / Time oxycodone AdvReac Intermediate Confusion Verified 01/19/22 12:11 Medications Home Medications Medication Instructions Recorded Confirmed Last Taken aspirin 325 mg tablet,delayed 325 mg PO PM 11/25/18 01/19/22 12/12/18 release (Ecotrin) losartan 100 1 tab PO PM 11/25/18 01/19/22 12/18/18 13:00 mg-hydrochlorothiazide 25 mg tablet metformin 1,000 mg tablet 1,000 mg PO BID 11/25/18 01/19/22 12/18/18 10:00 enoxaparin 80 mg/0.8 mL 80 mg subcut Q12H 12/19/18 01/19/22 12/18/18 08:00 subcutaneous syringe (Lovenox) lorazepam 0.5 mg tablet 0.5 mg PO Q8H #20 tabs 12/23/18 01/19/22 Unknown oxycodone 5 mg tablet 5 mg PO Q4H PRN Pain, Severe #30 12/23/18 01/19/22 Unknown tabs tramadol 50 mg tablet 50 mg PO Q4H PRN Pain, Moderate 12/23/18 01/19/22 Unknown #30 tabs albuterol sulfate 90 mcg/actuation 2 inh inhalation QID PRN Cough 01/19/22 01/19/22 Unknown aerosol inhaler cholecalciferol (vitamin D3) 25 25 mcg PO QAM 01/19/22 01/19/22 Unknown mcg (1,000 unit) tablet (Vitamin D3) montelukast 10 mg tablet 10 mg PO HS 01/19/22 01/19/22 Unknown Past Medical History Medical History (Updated 01/30/22 @ 10:32 by Bita Huber PA-C) Asthma mostly seasonal, prn albuterol, rare use Diabetes NIDDM 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 Exercise / Class Metabolic Activity II 4-5 Yardwork/Stairs/Walk up hill (denies CP or SOB with 1 FOS, ambulates with cane) Past Family History Family History Mother Family history of diabetes mellitus Grandmother (Maternal) Family history of diabetes mellitus Past Surgical History Surgical History (Updated 01/30/22 @ 10:17 by Bita Huber PA-C) History of cardiac cath REMOTE; NO STENTS History of carpal tunnel surgery of left wrist History of colonoscopy History of lumbar surgery L3-L5 decompression fusion: Grade 1 view, MAC 3, ETT 7.0. No postop issues per anesthesia progress note. History of open reduction and internal fixation (ORIF) procedure MIDDLE FINGER RIGHT History of rectal surgery FISTULA REPAIR Hx of cystoscopy FOR STONE REMOVAL Hx of hysterectomy Past Anesthesia History No Family Hx of Anesthesia Complications and Other (choking/difficulty breathing post-op requiring supplemental oxygen in past; denies re-intubation) History of PONV No Hx of PONV and No Hx of Motion Sickness Social History Smoking Status: Never smoker Do You Dip or Chew Tobacco: No Hx Alcohol Use: No Hx Substance Use: No substance use type: does not use Review of Systems Snoring, denies witnessed apneas or sleep studies. Occasional reflux with spicy foods. Chronic nocturnal cough with "phlegm" to clear throat, improved on montelukast by PCP. Patient denies chest pain, shortness of breath, dyspnea on exertion, fever, chills, wheezing, or palpitations. Physical Exam Vital Signs Vitals BP 115/70 P 59 TEMP 98.4 SP02 97% on RA RESP 17 Physical Mildly limited cervical extension range of motion without pain TMD 3.5 finger breadths Mallampati Score 3 Dentition: edentulous, full upper and lower dentures Lungs: normal respiratory effort. Clear throughout to auscultation, no adventitious breath sounds Cardiac: regular rate and rhythm, no murmurs noted Carotid arteries: negative bruit bilat Lab Results Anesthesia Preop Results Results Anesthesia Widget: WBC 6.39 K/ul (4.8-10.8) 01/30/22 Hgb 11.9 g/dl (12.0-16.0) L 01/30/22 Hct 35.2 % (34.1-44.9) 01/30/22 Plt 275 K/uL (130-400) 01/30/22 Na 138 mmol/L (136-145) 01/30/22 K 4.0 mmol/L (3.5-5.1) 01/30/22 Cl 105 mmol/L (98-107) 01/30/22 CO2 24 mmol/L (21-32) 01/30/22 BUN 21 mg/dl (6-23) 01/30/22 Creat 0.73 mg/dl (0.6-1.2) 01/30/22 Glucose Level 130 mg/dl (70-99(Fasting)) H 01/30/22 PT 10.8 Seconds (9.0-12.0) 01/30/22 PTT 26.5 Seconds (21.0-31.0) 01/30/22 INR 1.0 (0.9-1.1) 01/30/22 HA1c 6.8 % (4.5-5.6) H 01/30/22 Urine Color Yellow 01/30/22 Urine Appearance Clear (Clear) 01/30/22 Urine pH 5.0 (4.5-7.5) 01/30/22 Urine Specific Enders 1.009 (1.000-1.030) 01/30/22 Urine Protein Negative (Negative) 01/30/22 Urine Glucose (UA) Negative (Negative) 01/30/22 Urine Ketones Negative (Negative) 01/30/22 Urine Blood Trace (Negative) H 01/30/22 Urine Nitrite Positive (Negative) A 01/30/22 Urine Bilirubin Negative (Negative) 01/30/22 Urine Urobilinogen Negative (Negative) 01/30/22 Urine Leukocyte Esterase 2+ (Negative) H 01/30/22 Urine WBC (Auto) >30 /hpf (0-5) H 01/30/22 Urine RBC (Auto) 0-4 /hpf (0-4) 01/30/22 Urine Hyaline Casts (Auto) 0 /lpf (0-5) 01/30/22 Urine Epithelial Cells (Auto) 0-5 /lpf (0-5) 01/30/22 Urine Bacteria (Auto) 4+ (Negative) H 01/30/22 Blood Type A Positive 01/30/22 Antibody Screen NEGATIVE 01/30/22 Testing Laboratory Results Surgeon's office made aware of abnormal UA. Electrocardiogram Date: 01/30/22 NSR, rate 63 bpm Chest X-Ray Date: 01/30/22 No focal lung consolidations to suggest pneumonia. No evidence for pulmonary edema. Partially visualized lumbar spinal fusion hardware is noted. No pneumothorax. No pleural effusions. The heart is normal in size. Mild dextroscoliosis of the thoracic spine. Hazy appearance of the right medial lung base, unchanged. This favors prominent mediastinal fat. IMPRESSION: No significant change compared to the prior study. No acute process.
[~2022-02-06 06:10] MED LIST changes: +ACETAMINOPHEN 500 MG TAB PO SCH; +CeleBREX 200 MG CAP PO SCH; +GABAPENTIN 300 MG CAP PO SCH; +ceFAZolin 1000MG 1,000 MG/7.5 ML SYR IV SCH; -fentaNYL citrate 100 MCG/2 ML VIAL ONE
[2022-02-06] MEDS ORDERED: ceFAZolin 330 MG/ML 1 GM VIAL ONE (07:02)
[2022-02-06] MEDS ORDERED: BUPIVACAINE/EPINEPHRINE 0.25% 1:200,000 30 ML VIAL ONE (07:02)
[2022-02-06] MEDS ORDERED: ALBUTEROL 0.083% NEBU SOLN 3 ML VIAL INH PRN (07:08)
[2022-02-06] MEDS ORDERED: ATROPINE SULFATE 0.1 MG/ML 10ML SYR IV PRN (07:08)
[2022-02-06] MEDS ORDERED: ONDANSETRON INJ 2 MG/ML 2 ML VIAL IV PRN ×2 (07:08→11:43)
[2022-02-06] MEDS ORDERED: fentaNYL citrate 100 MCG/2 ML VIAL ONE (07:13)
[2022-02-06] MEDS ORDERED: MIDAZOLAM HCL 1 MG/ML 2ML VIAL ONE (07:13)
--- NOTE | 2022-02-06 07:29 | History & Physical Bridge Note ---
Date of Service February 06, 2022 History & Physical Bridge Note I have examined the patient, reviewed the History & Physical and in the interval since the performance of the History & Physical I have noted the following changes of clinical significance: no changes noted
--- NOTE | 2022-02-06 07:30 | History & Physical Report ---
Date of Service February 06, 2022 Assessment & Plan (1) Spinal stenosis, lumbar region with neurogenic claudication: Plan: L2-3 decompression fusion, L3 L5 possible instrumentation, L3 L5 possible hardware removal History of Present Illness Chief Complaint: Back and leg pain Primary Care Provider: Gm Betancourt This is a 69-year-old female who presents with worsening back and leg pain. After extensive course of nonoperative care she is here for surgical invention. Allergies Allergy/AdvReac Type Severity Reaction Status Date / Time oxycodone AdvReac Intermediate Confusion Verified 02/06/22 06:45 Home Medications Medication Instructions Recorded Confirmed Type aspirin 325 mg tablet,delayed 325 mg PO PM 11/25/18 02/06/22 History release (Ecotrin) losartan 100 1 tab PO PM 11/25/18 02/06/22 History mg-hydrochlorothiazide 25 mg tablet metformin 1,000 mg tablet 1,000 mg PO BID 11/25/18 02/06/22 History enoxaparin 80 mg/0.8 mL 80 mg subcut Q12H 12/19/18 02/06/22 History subcutaneous syringe (Lovenox) lorazepam 0.5 mg tablet 0.5 mg PO Q8H #20 tabs 12/23/18 01/19/22 Rx oxycodone 5 mg tablet 5 mg PO Q4H PRN Pain, Severe #30 12/23/18 01/19/22 Rx tabs tramadol 50 mg tablet 50 mg PO Q4H PRN Pain, Moderate 12/23/18 01/19/22 Rx #30 tabs albuterol sulfate 90 mcg/actuation 2 inh inhalation QID PRN Cough 01/19/22 01/19/22 History aerosol inhaler cholecalciferol (vitamin D3) 25 25 mcg PO QAM 01/19/22 02/06/22 History mcg (1,000 unit) tablet (Vitamin D3) montelukast 10 mg tablet 10 mg PO HS 01/19/22 02/06/22 History Past Med/Surg History Medical History Asthma mostly seasonal, prn albuterol, rare use Diabetes NIDDM 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); NO PERSONAL HX OF ISSUES History of anesthesia reaction sometimes feels like is choking when in recovery, can't catch breath-denies [id number] require supplemental oxygen at times in past History of blood transfusion S/P CHILDBIRTH/HEMORRHAGE History of kidney stones Hypertension controlled, stable per pt; white coat hypertension Numbness and tingling RIGHT LEG D/T BULGING DISC Spinal stenosis Surgical History History of cardiac cath REMOTE; NO STENTS History of carpal tunnel surgery of left wrist History of colonoscopy History of lumbar surgery L3-L5 decompression fusion: Grade 1 view, MAC 3, ETT 7.0. No postop issues per anesthesia progress note. 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) Vital Signs (Past 12 Hours) Vital Signs Temp Pulse Resp BP Pulse Ox O2 Del Method 02/06/22 06:48 36.6 C 67 20 130/90 98 Room Air
[2022-02-06] MEDS ORDERED: ACETAMINOPHEN 1000 MG/100 ML IV IV ONE (07:40)
[2022-02-06] MEDS ORDERED: HYDROmorphone INJ 2 MG/ML SYR/VIAL ONE (08:01)
[2022-02-06] MEDS ORDERED: PROPOFOL IV EMULSION 10 MG/ML 20 ML VIAL IV ONE (08:03)
[2022-02-06] MEDS ORDERED: ROCURONIUM BROMIDE 10 MG/ML 5 ML VIAL IV ONE (08:03)
[2022-02-06] MEDS ORDERED: GLYCOPYRROLATE 0.2 MG/ML VIAL ONE (08:03)
[2022-02-06] MEDS ORDERED: DEXAMETHASONE SOD INJ 4 MG/ML VIAL ONE (08:03)
[2022-02-06] MEDS ORDERED: NEOSTIGMINE METHYLSULFATE 1 MG/ML 10ML VIAL ONE (08:03)
[2022-02-06] MEDS ORDERED: LIDOCAINE 2% MPF LOCAL 5 ML VIAL INFIL ONE (08:03)
[2022-02-06] MEDS ORDERED: ONDANSETRON INJ 2 MG/ML 2 ML VIAL ONE (08:03)
[2022-02-06] MEDS ORDERED: FLOSEAL HEMOSTATIC MATRIX 10ML TOP ONE (08:35)
[2022-02-06] MEDS ORDERED: ePHEDrine sulfate 50 MG/ML AMP ONE (09:05)
--- NOTE | 2022-02-06 09:34 | Operative Report ---
Post Operative Report Pre & Post Diagnosis Operation Date: 02/06/22 07:45 Pre-Op Diagnosis: Radiculopathy, Lumbar Region Post-Op Diagnosis: Radiculopathy, Lumbar Region I identified the patient and participated in the time-out.: Yes Procedure Operation Date: 02/06/22 07:45 Actual Procedures #1 removal of posterior instrumentation L3-L5. #2 exploration of fusion L3 L5. #3 lumbar decompression with bilateral medial facetectomies and foraminotomies L1-L2 L2-L3. #4 posterior spinal fusion L2-L3. #5 placement posterior instrumentation L2-L5. #6 interbody fusion L2-L3. #7 placement of Spira 11 x 26 mm cage at L2-L3. #8 placement locally harvested morselized autograft in the posterior gutters. #9 placement of I factor model V toss in the interbody space and posterior lateral gutters. Surgeon David Recinos, Marketing Content Coordinator Aj Miramontes Estimated Blood Loss 250 Findings Consistent with Post-Op Diagnosis Specimens None Indications This is a 69-year-old female well-known to me the presents above-mentioned diagnosis after failing course of nonoperative care she is here for surgical invention. Description of Procedure Patient was met with identified informed consent obtained. Patient was then taken to the operative suite underwent an patient placed in a prone position on the Brice table top of the Stephon frame. All bony prominences well-padded eyes inspected to ensure no external pressure placed upon them. This point the lumbar spine was prepped and draped in normal sterile fashion. Sharp dissection with assistance of Bovie cautery was performed down to and exposing the lamina and transverse processes of L2 and instrumentation at L3-L4-L5 bilaterally. Then proceeded move the hardware bilaterally explore the fusion mass noting it to be mature and intact. I then performed a complete laminectomy of L2 partial laminectomy of L1 including bilateral medial facetectomies and foraminotomies dressing severe lateral recess and foraminal stenosis. Pedicle screws then placed in L2-L3 and L5 bilaterally with assistance of fluoroscopy and the properly sized jessi placed. By way of trans foraminal approach on the right complete discectomy of L2-L3 was performed endplates curetted to subcortical bleeding bone and a 11 x 22 mm spiral cage filled I factor tapped in position. The rods were then locked into final position bilaterally. The transverse processes of L2-L3 burred to subcortical bleeding bone. I factor combined with V toss and locally harvested morselized autograft was then placed in the posterior gutters. 15 round MARS drain inserted. The incision was then closed with 1 Vicryl in the fascia 2-0 Vicryl subcutaneously and 4 Monocryl for final skin closure. Steri-Strip sterile dressings placed. Patient waken taken PACU stable condition. Please note spinal cord monitoring was utilized at the procedure no changes noted. Lastly Aj Miramontes was present out the entire surgeon while the patient positioning complex portions of the surgery and final skin closure. I attest to the content of the Intraoperative Record and any orders documented therein. Any exceptions are noted below.
[2022-02-06] MEDS: HYDROmorphone INJ 1 MG/ML SYRINGE IV PRN ×4 (10:11→10:26)
--- NOTE | 2022-02-06 11:20 | Fluoroscopy Report ---
FL lumbar spine 2-3V CLINICAL HISTORY: L2-L3 DECOMPRESSION AND FUSION COMPARISON STUDY: Lumbar spine MRI November 16, 2018. Lumbar spine fluoroscopic images December 19, 2018. FLUOROSCOPY TIME: 14 seconds. FLUOROSCOPIC IMAGES: 3 FINDINGS: Previous L4-L5 discectomy is noted. Exact localization is difficult given partial visualiza tion of the spine however, these images suggest interval L2-L3 discectomy with posterior decompressio n. Bilateral pedicle screw fusion is partially imaged. IMPRESSION: Fluoroscopy provided during interval L2-L3 discectomy and fusion. ACT 112: Negative or not required by law. Electronically signed by: Jesús Goodrich M.D. 02/06/2022 11:19 AM
[2022-02-06] MEDS ORDERED: ONDANSETRON 4 MG OD TAB PO PRN (11:43)
[2022-02-06] MEDS ORDERED: bisacodyL 10 MG SUPP PR PRN (11:43)
[2022-02-06] MEDS ORDERED: METOCLOPRAMIDE HCL INJ 5 MG/ML 2 ML VIAL IV PRN (11:43)
[2022-02-06] MEDS ORDERED: diphenhydrAMINE Capsule 25 MG CAP PO PRN (11:43)
[2022-02-06] MEDS ORDERED: LORazepam 0.5 MG in SYRINGE 0.25 ML IV PRN (11:43)
[2022-02-06] MEDS ORDERED: NALOXONE HCL 0.4 MG/1 ML VIAL/CARP IV PRN (11:43)
[2022-02-06] MEDS ORDERED: LORazepam 0.5 MG TAB PO PRN (11:43)
[2022-02-06] MEDS ORDERED: ACETAMINOPHEN 500 MG TAB PO PRN (11:43)
[2022-02-06] MEDS ORDERED: FAMOTIDINE 20 MG TAB PO PRN (11:43)
[2022-02-06] MEDS ORDERED: SOD PHOSPHATE/SOD BIPHOSPHATE ENEMA 132 ML BTL PR PRN (11:43)
[2022-02-06] MEDS ORDERED: MAGNESIUM HYDROXIDE SUSP 30 ML UDC PO PRN (11:43)
[2022-02-06] MEDS ORDERED: HYDROmorphone INJ 0.5 MG/0.5 ML SYR IV PRN (11:43)
[2022-02-06] MEDS ORDERED: PROMETHAZINE HCL 12.5 MG in SODIUM CHLORIDE 0.9% 50 ML IV PRN (11:43)
[2022-02-06] MEDS ORDERED: HYDROmorphone INJ 1 MG/ML SYRINGE IV PRN (11:43)
[2022-02-06] MEDS ORDERED: ALUMINUM/MAGNESIUM SUSP 30 ML UDC PO PRN (11:43)
[2022-02-06] MEDS ORDERED: hydrOXYzine HCl 25 MG TAB PO PRN (11:43)
[2022-02-06] MEDS ORDERED: oxyCODONE HCL IR 5 MG TAB (IMMEDIATE RELEASE) PO PRN (11:43)
[2022-02-06] MEDS ORDERED: ACETAMINOPHEN 1,000 MG/100 ML VIAL IV PRN (11:43)
[2022-02-06] MEDS ORDERED: PHARMACY GLYCEMIC MGMT CONSULT PRN (11:43)
--- NOTE | 2022-02-06 11:58 | Anesthesiology Progress Note ---
Date of Service February 06, 2022 Anesthesia Post Procedure Vital Signs Vital Signs: Temp Pulse Resp BP Pulse Ox O2 Del Method O2 Flow Rate 02/06/22 11:45 62 10 L 113/50 L 99 Nasal Cannula 2 02/06/22 11:15 64 12 102/50 L 99 Nasal Cannula 2 02/06/22 10:45 65 12 115/54 L 100 Nasal Cannula 2 02/06/22 10:35 36.5 C 69 15 120/56 L 100 Nasal Cannula 2 02/06/22 10:15 64 12 116/58 L 100 Oxymask 4 02/06/22 10:25 69 13 118/55 L 100 Oxymask 4 02/06/22 10:05 62 17 118/60 100 Oxymask 6 02/06/22 09:55 37.0 C 76 16 141/67 H 100 Oxymask 6 02/06/22 06:48 36.6 C 67 20 130/90 98 Room Air Pain Intensity Back: Pain Intensity: 3 Transfer of Care Handoff Completed per policy Notes Mental Status: alert / awake / arousable Patient Amnestic to Procedure: Yes Nausea / Vomiting: adequately controlled Pain: adequately controlled Airway Patency, RR, SpO2: stable & adequate BP & HR: stable & adequate Hydration State: stable & adequate Anesthetic Complications: no major complications apparent
[2022-02-06] MEDS ORDERED: CARBOHYDRATES FOR HYPOGLYCEMIA PO PRN (12:15)
[2022-02-06] MEDS ORDERED: GLUCOSE 40% GEL 15 GM TUBE PO PRN (12:15)
[2022-02-06] MEDS ORDERED: DEXTROSE 50% 50 ML SYRINGE IV PRN (12:15)
[2022-02-06] MEDS ORDERED: GLUCAGON FOR INJ 1 MG VIAL SQ PRN (12:15)
[2022-02-06] MEDS ORDERED: GLUCOSE 10 TAB/TUBE PO PRN (12:15)
--- NOTE | 2022-02-06 13:30 | Pharmacy Report ---
Pharmacy Glycemic Short Note 2 - Date of Service February 06, 2022 - Glycemic Short BSG Results (Last 24 hours): 02/06/22 02/06/22 06:44 09:57 POC Glucose 136 H 216 H OUTPATIENT ANTIDIABETIC REGIMEN: * Metformin 1 g PO BID * A1c 6.8% 01/30/22 ASSESSMENT: * 77 year old female, s/p spinal surgery by Dr Recinos. Well controlled type 2 DM on only metformin as outpatient. * Blood sugar increased from 136 --> 216mg/dl d/t IV dexamethasone preop, which continues daily x 3 days. * Oral agents are not recommended for inpatient use d/t drug interactions, changing PO intake, and difficulty titrating for acute hyper/hypoglycemia. * Will hold oral agents for admission and utilize SQ basal bolus insulin regimen which is the recommended regimen for inpatient glycemic control. * Will initiate weight based insulin dosing for insulin sanchez patient, use NPH to cover steroid effects, and titrate based on BSG trends. * Per nursing, pt refused meal tray after surgery, only have sprite zero at this time. PLAN FOR INPATIENT GLYCEMIC CONTROL: * Hold outpatient oral diabetes medications * Basal insulin * NPH 30 units SQ daily with IV dexamethasone (hold if dexamethasone held) * Bolus insulin * NovoLog per scale ACHS or Q6hrs while NPO * Goal Range: Low 110 mg/dL - High 140 mg/dL * Correction Factor: 20 mg/dL/unit * Nutritional / Prandial insulin per carb ratio of 1 unit per 7 grams CHO consumed
[2022-02-06] MEDS: SODIUM CHLORIDE 0.9% 1000ML 1,000 ML IV SCH (13:47)
--- NOTE | 2022-02-06 13:55 | Hospitalist Consultation ---
Date of Consultation February 06, 2022 Assessment & Plan (1) Spinal stenosis, lumbar region with neurogenic claudication: s/p lumbar decompression and posterior fusion today. Pian management per surgery (2) HTN (hypertension): Recommend holding losartan/HCTZ post op day1 pending improvement in her BP. (3) DM II (diabetes mellitus, type II), controlled: HbA1C 6.8 Holding metformin during inpatient stay but this can be continued on discharge. Pharmacy consulted for glycemic control (4) Factor V Leiden: Previously listed as factor V deficiency however this would not make sense why she would be treated pre-operatively with Lovenox and be treated with aspirin. Patient does confirm she has factor V leiden rather than a deficiency however unknown if she is heterozygous or homozygous. I suspect that the former given she has never had a deep vein thrombosis or pulmonary embolus in the past (there is an 80 fold increase in DVT risk for homozygous carriers compared to 7-fold increase with heterozygous). There is no significant urgency to restart anticoagulation/antiplatelets above which was what would be recommended for someone without heterozygous factor V. Highly suggest the patient discusses with the PCP her correct diagnosis. Plan Thank you for the consult we will continue to follow the patient with you. History of Present Illness Reason for Consultation: postop med management Attending Physician: David Recinos, DO History of Present Illness Carmen Weiss is a 77 year old female admitted for elective lumbar decompression with removal of posterior instrumentation L3-L5 and placement of posterior instrumentation L2-L5 with L2-3 fusion performed today by Dr Recinos. Patient reports main symptom was right-sided L2 distribution pain which appears to have improved since the operation although it is mostly when she walks and she is yet to be up from her bed. She reports pain is well controlled. Her chronic medical conditions she reports is well controlled with high blood pressure on losartan/hydrochlorothiazide and type 2 diabetes with HbA1c previously 6.8. She has a diagnosis in the chart of factor V deficiency. She reports being diagnosed with this 15 years ago after her brother had a pulmonary embolus and was diagnosed with the same. She was pretreated with Lovenox per PCP guidance prior to the operation and last at this the evening before her operation. She reports taking aspirin for this chronically. She has never had a pulmonary embolus or deep vein thrombosis. I suspect therefore she has factor V Leiden rather than a deficiency and the patient confirms she has been told this in the past. Rarely patients can have a pseudohomogenous factor V Leiden with both factor V Leiden and a deficiency however this is rare and I would have expected her to have a blood clot in the past. I would have also expected her to have a blood clot if she is homogenous for factor V Leiden. Therefore suspect she is heterozygous however advised the patient to confirm her diagnosis with her primary care physician and if not known to get retested. She reports being advised to take Lovenox twice a day since last Wednesday. She did the same before back operation in 2019. Allergies Allergy/AdvReac Type Severity Reaction Status Date / Time oxycodone AdvReac Intermediate Confusion Verified 02/06/22 06:45 Home Medications Medication Instructions Recorded Confirmed Type aspirin 325 mg tablet,delayed 325 mg PO PM 11/25/18 02/06/22 History release (Ecotrin) losartan 100 1 tab PO PM 11/25/18 02/06/22 History mg-hydrochlorothiazide 25 mg tablet metformin 1,000 mg tablet 1,000 mg PO BID 11/25/18 02/06/22 History enoxaparin 80 mg/0.8 mL 80 mg subcut Q12H 12/19/18 02/06/22 History subcutaneous syringe (Lovenox) lorazepam 0.5 mg tablet 0.5 mg PO Q8H #20 tabs 12/23/18 01/19/22 Rx oxycodone 5 mg tablet 5 mg PO Q4H PRN Pain, Severe #30 12/23/18 01/19/22 Rx tabs tramadol 50 mg tablet 50 mg PO Q4H PRN Pain, Moderate 12/23/18 01/19/22 Rx #30 tabs albuterol sulfate 90 mcg/actuation 2 inh inhalation QID PRN Cough 01/19/22 01/19/22 History aerosol inhaler cholecalciferol (vitamin D3) 25 25 mcg PO QAM 01/19/22 02/06/22 History mcg (1,000 unit) tablet (Vitamin D3) montelukast 10 mg tablet 10 mg PO HS 01/19/22 02/06/22 History Patient History Medical History (Updated 02/06/22 @ 15:43 by Josue Gomez MD) Asthma mostly seasonal, prn albuterol, rare use Diabetes NIDDM 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); NO PERSONAL HX OF ISSUES Factor V Leiden History of anesthesia reaction sometimes feels like is choking when in recovery, can't catch breath-denies [id number] require supplemental oxygen at times in past History of blood transfusion S/P CHILDBIRTH/HEMORRHAGE History of kidney stones Hypertension controlled, stable per pt; white coat hypertension Numbness and tingling RIGHT LEG D/T BULGING DISC Spinal stenosis Surgical History History of cardiac cath REMOTE; NO STENTS History of carpal tunnel surgery of left wrist History of colonoscopy History of lumbar surgery L3-L5 decompression fusion: Grade 1 view, MAC 3, ETT 7.0. No postop issues per anesthesia progress note. History of open reduction and internal fixation (ORIF) procedure MIDDLE FINGER RIGHT History of rectal surgery FISTULA REPAIR Hx of cystoscopy FOR STONE REMOVAL Hx of hysterectomy Family History Mother Family history of diabetes mellitus Grandmother (Maternal) Family history of diabetes mellitus Social History Smoking Status: Never smoker Second Hand Exposure: No; Do You Dip or Chew Tobacco: No; Tobacco Cessation Education Requested by Patient: No Hx Alcohol Use: No Hx Substance Use: No Preferred Language: Malay Communication Ability: Effective French Binder Required: No Beliefs That Will Affect Care: None marital status: Current Living Situation: Family current occupational status: retired Other Information That Helps Us Care for You: No Feels Safe at Home: Yes Safety Concerns: Feels Safe At This Time Assistive Devices: Cane, Denture - Lower, Glasses and Walker Review of Systems Review of Systems: All systems reviewed & are unremarkable except as noted in HPI & below Physical Exam Constitutional: WD/WN, vitals as above Eyes: + anicteric sclerae; normal pupil size ENMT: external ear and nose normal, oropharynx normal Neck: trachea midline, no thyromegaly Respiratory: normal respiratory effort, lungs clear to auscultation Cardiovascular: RRR, no murmur, no edema Gastrointestinal (Abdomen): normal bowel sounds, soft, nontender, no hepatosplenomegaly Musculoskeletal: no cyanosis or clubbing, extremities motor strength 5/5 (Limited exam of bilateral lower extremities to ankles and toes only) Skin: no rashes, warm and dry Neurologic: moves all extremities and awake; not confused Motor/Sensory: no sensory deficit Psychiatric: A+Ox3, euthymic affect Results & Data Results & Data ([facility]) Vital Signs (Past 12 Hours) Vital Signs Temp Pulse Resp BP Pulse Ox O2 Del Method O2 Flow Rate 02/06/22 13:32 36.5 C 87 16 109/67 95 Room Air 02/06/22 13:06 36.7 C 72 14 111/62 96 Room Air 02/06/22 12:45 36.2 C L 65 12 115/50 L 99 Nasal Cannula 2 02/06/22 12:15 70 13 112/55 L 99 Nasal Cannula 2 02/06/22 11:45 62 10 L 113/50 L 99 Nasal Cannula 2 02/06/22 11:15 64 12 102/50 L 99 Nasal Cannula 2 02/06/22 10:45 65 12 115/54 L 100 Nasal Cannula 2 02/06/22 10:35 36.5 C 69 15 120/56 L 100 Nasal Cannula 2 02/06/22 10:15 64 12 116/58 L 100 Oxymask 4 02/06/22 10:25 69 13 118/55 L 100 Oxymask 4 02/06/22 10:05 62 17 118/60 100 Oxymask 6 02/06/22 09:55 37.0 C 76 16 141/67 H 100 Oxymask 6 02/06/22 06:48 36.6 C 67 20 130/90 98 Room Air PG Care Time/CCT Total # of Minutes Spent Total Time Spent with Patient: Total time spent is greater than 50% in coordination of care (as documented) at patient's floor/unit and/or counseling patient: Coding Level of Care Code 26707 Inpt Consult Level 3 Diagnoses Spinal stenosis, lumbar region with neurogenic claudication M48.062 HTN (hypertension) I10 DM II (diabetes mellitus, type II), controlled E11.9 Factor V Leiden D68.51
[2022-02-06] MEDS: INSULIN ASPART PER UNIT SC SCH ×3 (14:08→20:48)
[2022-02-06] MEDS: INSULIN HUMAN NPH SC SCH (14:09)
[2022-02-06] MEDS: ceFAZolin 2000MG 2,000 MG/15 ML SYR IV SCH ×2 (16:27→22:55)
[2022-02-06] MEDS: traMADol HCL 50 MG TABLET PO PRN (18:11)
[2022-02-06] MEDS ORDERED: CHLORASEPTIC 1.4% SOLN 180 ML BTL MT PRN (18:58)
[2022-02-06] MEDS: MONTELUKAST SODIUM 10 MG TABLET PO SCH (20:22)
[2022-02-06] MEDS: DOCUSATE SODIUM/SENNA 50/8.6MG TAB PO SCH (20:22)
[2022-02-06] MEDS ORDERED: LOSARTAN/HCTZ 50/12.5MG TAB PO SCH (21:00)
[2022-02-06] MEDS ORDERED: ASPIRIN 325 MG ECTAB PO SCH (21:00)
[2022-02-07] MEDS: SODIUM CHLORIDE 0.9% 1000ML 1,000 ML IV SCH ×2 (00:33→09:48)
[2022-02-07] MEDS: POLYETHYLENE (MIRALAX) 17 GM PACK PO SCH ×4 (06:23→22:37)
[2022-02-07 07:17] LABS: Basophils # (auto) 0.02 K/uL (0-0.2); Basophils % (auto) 0.2 %; Eosinophils # (auto) 0.05 K/uL (0-0.50); Eosinophils % (auto) 0.6 %; Hematocrit (blood only) 24.9 % (34.1-44.9); Hemoglobin 8.2 g/dl (12.0-16.0); Immature Granulocytes # (auto) 0.03 K/uL (0.00-0.02); Immature Granulocytes % (auto) 0.4 %; Lymphocytes # (auto) 1.65 K/uL (1.2-3.4); Lymphocytes % (auto) 19.6 %; Mean Corpuscular Hemoglobin 29.6 pg (25.0-34.0); Mean Corpuscular Hgb Conc 32.9 g/dL (32.0-36.0); Mean Corpuscular Volume 89.9 fL (80.0-100.0); Mean Platelet Volume 10.3 fL (9.4-12.3); Monocytes # (auto) 0.65 K/uL (0.24-0.82); Monocytes % (auto) 7.7 %; Neutrophils # (auto) 6.02 K/uL (1.4-6.5); Neutrophils % (auto) 71.5 %; Platelet Count 186 K/uL (130-400); RDW Coefficient of Variation 13.6 % (11.5-14.5); RDW Standard Deviation 44.7 fL (36.4-46.3); Red Blood Count 2.77 M/uL (3.93-5.22); White Blood Count 8.42 K/ul (4.8-10.8)
[2022-02-07 07:41] LABS: BUN Creatinine Ratio 20.5 (10-20); Calcium 8.2 mg/dl (8.5-10.1); Creatinine Clr Calc Pharmacy 68.7 ml/min; Est GFR (African American) 91.4 ml/min; Est GFR (Non-African American) 78.9 ml/min; Potassium 3.4 mmol/L (3.5-5.1)
[2022-02-07] MEDS: CHOLECALCIFEROL 1,000 UNITS 25 MCG TAB PO SCH (10:10)
[2022-02-07] MEDS: traMADol HCL 50 MG TABLET PO PRN ×2 (10:10→21:10)
[2022-02-07] MEDS: INSULIN HUMAN NPH SC SCH (10:11)
[2022-02-07] MEDS: dexAMETHasone 4 MG in SYRINGE 0 ML IV SCH (10:11)
[2022-02-07] MEDS: INSULIN ASPART PER UNIT SC SCH ×4 (10:12→21:12)
--- NOTE | 2022-02-07 10:55 | Orthopedic Progress Note ---
Date of Service February 07, 2022 Assessment & Plan (1) Spinal stenosis, lumbar region with neurogenic claudication: Plan: This time continue physical therapy monitor MARS operatively discharge home in the next day or so. Admission and Anticipated Discharge Date Admission Date: February 06, 2022 Subjective Patient's back pain controlled leg symptoms markedly improved Physical Exam Physical Exam: Patient has good strength testing. Appears comfortable. Results & Data ([facility]) Vital Signs (Past 12 Hours) Vital Signs Temp Pulse Resp BP BP Pulse Ox O2 Del Method 02/07/22 08:27 109/57 L 02/07/22 08:04 36.9 C 58 L 16 95/51 L 97 Room Air 02/07/22 03:04 36.7 C 63 16 88/51 L 97 Room Air 02/06/22 23:05 36.9 C 83 16 90/47 L 92 Room Air
[2022-02-07 17:13] LABS: Appearance Urine Cloudy (Clear); Bacteria Urine Automated Negative (Negative); Bilirubin Urine Negative (Negative); Blood Urine Negative (Negative); Color Urine Yellow; Epithelial Cell Urine Auto >30 /lpf (0-5); Glucose Urine UA Negative (Negative); Ketones Urine Negative (Negative); Leukocyte Esterase Urine 2+ (Negative); Nitrite Urine Negative (Negative); Protein Urine Negative (Negative); RBC Urine Automated 0-4 /hpf (0-4); Specific Gravity Urine 1.008 (1.000-1.030); Urobilinogen Urine Negative (Negative); WBC Urine Automated >30 /hpf (0-5); pH Urine 5.5 (4.5-7.5)
[2022-02-07] MEDS ORDERED: LOSARTAN/HCTZ 50/12.5MG TAB PO SCH (21:00)
[2022-02-07] MEDS ORDERED: ASPIRIN 325 MG ECTAB PO SCH (21:00)
[2022-02-07] MEDS ORDERED: LOSARTAN POTASSIUM 50 MG TAB PO SCH (21:00)
[2022-02-07] MEDS: DOCUSATE SODIUM/SENNA 50/8.6MG TAB PO SCH (21:11)
[2022-02-07] MEDS: MONTELUKAST SODIUM 10 MG TABLET PO SCH (21:12)
--- NOTE | 2022-02-07 23:01 | Hospitalist Progress Note ---
Date of Service February 07, 2022 Assessment & Plan (1) Spinal stenosis, lumbar region with neurogenic claudication: Plan: s/p lumbar decompression and posterior fusion today. Pain management per surgery (2) Postoperative anemia: Plan: Hgb 8.2 from 11.9. Continue to hold aspirin as below. Repeat CBC in AM (3) HTN (hypertension): Plan: Restart losartan tonight. Restart on her usual losartan/HCTZ tomorrow (4) DM II (diabetes mellitus, type II), controlled: Plan: HbA1C 6.8 Holding metformin during inpatient stay but this can be continued on discharge. Pharmacy consulted for glycemic control (5) Factor V Leiden: Plan: Previously listed as factor V deficiency however this would not make sense why she would be treated pre-operatively with Lovenox and be treated with aspirin. Patient does confirm she has factor V leiden rather than a deficiency however unknown if she is heterozygous or homozygous. I suspect that the former given she has never had a deep vein thrombosis or pulmonary embolus in the past (there is an 80 fold increase in DVT risk for homozygous carriers compared to 7-fold increase with heterozygous). There is no significant urgency to restart anticoagulation/antiplatelets above which was what would be recommended for someone without heterozygous factor V. Highly suggest the patient discusses with the PCP her correct diagnosis. Continue to hold aspirin at this time. Plan Thank you for the consult we will continue to follow the patient with you. Admission and Anticipated Discharge Date Admission Date: February 06, 2022 Subjective No leg pain while in bed, improved while walking around. No acute concerns or questions to me today. Discussed with family at bedside and they think her diagnosis is herterozygous for factor V leiden. No chest pain, shortness of breath Review of Systems Review of Systems: All systems reviewed & are unremarkable except as noted in Subjective Physical Exam Constitutional: WD/WN, vitals as above Eyes: + anicteric sclerae; normal pupil size ENMT: external ear and nose normal, oropharynx normal Neck: trachea midline, no thyromegaly Respiratory: normal respiratory effort, lungs clear to auscultation Cardiovascular: RRR, no murmur, no edema Gastrointestinal (Abdomen): normal bowel sounds, soft, nontender, no hepatosplenomegaly Musculoskeletal: no cyanosis or clubbing, extremities motor strength 5/5 (Limited exam of bilateral lower extremities to ankles and toes only) Skin: no rashes, warm and dry Neurologic: moves all extremities and awake; not confused Motor/Sensory: no sensory deficit Psychiatric: A+Ox3, euthymic affect Results & Data Results & Data ([facility]) Vital Signs (Past 12 Hours) Vital Signs Temp Pulse Resp BP BP Pulse Ox O2 Del Method 02/07/22 15:33 36.8 C 75 16 145/73 H 92 Room Air 02/07/22 11:45 36.9 C 68 16 104/58 L 94 Room Air PG Care Time/CCT Total # of Minutes Spent Total Time Spent with Patient: Total time spent is greater than 50% in coordination of care (as documented) at patient's floor/unit and/or counseling patient: Coding Level of Care Code 12688 Subseq Hosp Care Lvl 2 Diagnoses Spinal stenosis, lumbar region with neurogenic claudication M48.062 Postoperative anemia D64.9 HTN (hypertension) I10 DM II (diabetes mellitus, type II), controlled E11.9 Factor V Leiden D68.51
[2022-02-08] MEDS: POLYETHYLENE (MIRALAX) 17 GM PACK PO SCH ×4 (05:30→23:40)
[2022-02-08 07:24] LABS: Basophils # (auto) 0.02 K/uL (0-0.2); Basophils % (auto) 0.3 %; Eosinophils # (auto) 0.05 K/uL (0-0.50); Eosinophils % (auto) 0.6 %; Hematocrit (blood only) 23.9 % (34.1-44.9); Hemoglobin 7.8 g/dl (12.0-16.0); Immature Granulocytes # (auto) 0.05 K/uL (0.00-0.02); Immature Granulocytes % (auto) 0.6 %; Lymphocytes # (auto) 2.25 K/uL (1.2-3.4); Lymphocytes % (auto) 28.5 %; Mean Corpuscular Hemoglobin 29.3 pg (25.0-34.0); Mean Corpuscular Hgb Conc 32.6 g/dL (32.0-36.0); Mean Corpuscular Volume 89.8 fL (80.0-100.0); Mean Platelet Volume 10.1 fL (9.4-12.3); Monocytes # (auto) 0.71 K/uL (0.24-0.82); Neutrophils # (auto) 4.81 K/uL (1.4-6.5); Platelet Count 178 K/uL (130-400); RDW Coefficient of Variation 13.8 % (11.5-14.5); RDW Standard Deviation 45.1 fL (36.4-46.3); Red Blood Count 2.66 M/uL (3.93-5.22); White Blood Count 7.89 K/ul (4.8-10.8)
[2022-02-08 07:48] LABS: BUN Creatinine Ratio 24.6 (10-20); Calcium 8.4 mg/dl (8.5-10.1); Creatinine Clr Calc Pharmacy 77.1 ml/min; Est GFR (African American) 98.6 ml/min; Potassium 3.7 mmol/L (3.5-5.1)
--- NOTE | 2022-02-08 08:00 | Orthopedic Progress Note ---
Date of Service February 08, 2022 Assessment & Plan (1) Spinal stenosis, lumbar region with neurogenic claudication: Plan: Patient is stable postop day #2. Going to continue with GI DVT prophylaxis. We will continue with pain control measures. As per drainage slows down and she is more ambulatory may consider discharged home tomorrow. Admission and Anticipated Discharge Date Admission Date: February 06, 2022 Subjective Patient was seen bedside in room 386 bed 2. She states that she is doing quite well. She has no leg pain to speak of. She has no abdominal discomfort. She is tolerating p.o. She denies any other numbness, tingling, paresthesias. Physical Exam Physical Exam: On exam she is alert and oriented. Her abdomen soft and nontender. Her calves are supple nontender. Her dressing is clean dry and intact. Her MARS drain is in place and is placed out 40 cc on the shift and 50 on the previous. Results & Data ([facility]) Vital Signs (Past 12 Hours) Vital Signs Temp Pulse Resp BP Pulse Ox O2 Del Method 02/07/22 23:02 36.6 C 60 18 94/48 L 95 Room Air
[2022-02-08 08:04] LABS: RBC Morphology Unremarkable
[2022-02-08] MEDS: INSULIN HUMAN NPH SC SCH (08:55)
[2022-02-08] MEDS: INSULIN ASPART PER UNIT SC SCH ×4 (08:55→20:28)
[2022-02-08] MEDS: CHOLECALCIFEROL 1,000 UNITS 25 MCG TAB PO SCH (08:56)
[2022-02-08] MEDS: dexAMETHasone 4 MG in SYRINGE 0 ML IV SCH (08:57)
[2022-02-08] MEDS: traMADol HCL 50 MG TABLET PO PRN ×2 (15:21→20:31)
[2022-02-08] MEDS: DOCUSATE SODIUM/SENNA 50/8.6MG TAB PO SCH (20:28)
[2022-02-08] MEDS: MONTELUKAST SODIUM 10 MG TABLET PO SCH (20:28)
[2022-02-08] MEDS ORDERED: LOSARTAN POTASSIUM 50 MG TAB PO SCH (21:00)
[2022-02-08] MEDS ORDERED: LOSARTAN/HCTZ 50/12.5MG TAB PO SCH (21:00)
[2022-02-08] MEDS ORDERED: ASPIRIN 325 MG ECTAB PO SCH (21:00)
[2022-02-09] MEDS: POLYETHYLENE (MIRALAX) 17 GM PACK PO SCH ×2 (06:30→13:11)
--- NOTE | 2022-02-09 07:26 | Hospitalist Progress Note ---
Date of Service February 08, 2022 Assessment & Plan (1) Spinal stenosis, lumbar region with neurogenic claudication: Plan: s/p lumbar decompression and posterior fusion today. Pain management per surgery (2) Postoperative anemia: Plan: Hgb 7.8 from 11.9. Continue to hold aspirin as below. Repeat CBC in AM Recommend ferrous sulfate 325mg PO QOD on discharge -> will avoid as inpatient as she has problems with constipation here (3) HTN (hypertension): Plan: Continue losartan alone tonight. Restart on her usual losartan/HCTZ tomorrow (4) DM II (diabetes mellitus, type II), controlled: Plan: HbA1C 6.8 Holding metformin during inpatient stay but this can be continued on discharge. Pharmacy consulted for glycemic control (5) Factor V Leiden: Plan: Previously listed as factor V deficiency however this would not make sense why she would be treated pre-operatively with Lovenox and be treated with aspirin. Patient does confirm she has factor V leiden rather than a deficiency however unknown if she is heterozygous or homozygous. I suspect that the former given she has never had a deep vein thrombosis or pulmonary embolus in the past (there is an 80 fold increase in DVT risk for homozygous carriers compared to 7-fold increase with heterozygous). There is no significant urgency to restart anticoagulation/antiplatelets above which was what would be recommended for someone without heterozygous factor V. Highly suggest the patient discusses with the PCP her correct diagnosis. Continue to hold aspirin at this time. (6) Asymptomatic bacteriuria: Plan: E. coli in urine pre-operatively. No urinary Sx at that time per patient. Current UA reassuringly clear. Plan Thank you for the consult we will continue to follow the patient with you. Admission and Anticipated Discharge Date Admission Date: February 06, 2022 Subjective Doing well post operatively. No chest pain, shortness of breath, dizziness with current anemia. Review of Systems Review of Systems: All systems reviewed & are unremarkable except as noted in Subjective Physical Exam Constitutional: WD/WN, vitals as above Eyes: + anicteric sclerae; normal pupil size Respiratory: normal respiratory effort, lungs clear to auscultation Cardiovascular: RRR, no murmur, no edema Musculoskeletal: no cyanosis or clubbing, extremities motor strength 5/5 (Limited exam of bilateral lower extremities to ankles and toes only) Neurologic: moves all extremities and awake; not confused Motor/Sensory: no sensory deficit Psychiatric: A+Ox3, euthymic affect Results & Data Results & Data ([facility]) Vital Signs (Past 12 Hours) Vital Signs Temp Pulse Resp BP Pulse Ox O2 Del Method 02/08/22 23:12 36.9 C 59 L 18 114/58 L 97 Room Air 02/08/22 20:27 37.3 C 60 110/66 PG Care Time/CCT Total # of Minutes Spent Total Time Spent with Patient: Total time spent is greater than 50% in coordination of care (as documented) at patient's floor/unit and/or counseling patient: Coding Level of Care Code 63352 Subseq Hosp Care Lvl 1 Diagnoses Spinal stenosis, lumbar region with neurogenic claudication M48.062 Postoperative anemia D64.9 HTN (hypertension) I10 DM II (diabetes mellitus, type II), controlled E11.9 Factor V Leiden D68.51 Asymptomatic bacteriuria R82.71
[2022-02-09 07:43] LABS: Hemoglobin 8.2 g/dl (12.0-16.0); Mean Corpuscular Hemoglobin 29.3 pg (25.0-34.0); Mean Corpuscular Hgb Conc 32.8 g/dL (32.0-36.0); Mean Corpuscular Volume 89.3 fL (80.0-100.0); Mean Platelet Volume 10.6 fL (9.4-12.3); Platelet Count 224 K/uL (130-400); RDW Coefficient of Variation 13.8 % (11.5-14.5); RDW Standard Deviation 45.3 fL (36.4-46.3); White Blood Count 8.52 K/ul (4.8-10.8)
--- NOTE | 2022-02-09 08:34 | Discharge Summary ---
Date of Service February 09, 2022 Admission HPI Per Admitting Provider This is a 69-year-old female who presents with worsening back and leg pain. After extensive course of nonoperative care she is here for surgical invention. Principal Diagnosis Lumbar spinal stenosis with neurogenic claudication Discharge Data Allergies Allergy/AdvReac Type Severity Reaction Status Date / Time oxycodone AdvReac Intermediate Confusion Verified 02/06/22 06:45 Consultations 02/06/22 13:17 Consult Hospitalist Routine Procedures Performed Operation Date: 02/06/22 07:45 Actual Procedures p L2-L3 Decompression and Fusion, Spinal Cord Monitoring(Not Applicable) - David Recinos DO s L3-L5 Hardware Removal with Re-Instrumentation,(Not Applicable) - David Recinos DO Ordered Studies 02/06/22 07:45 FL lumbar spine 2-3V Routine Hospital Course (1) Spinal stenosis, lumbar region with neurogenic claudication: Patient with lumbar decompression fusion tolerated this well was taken to orthopedic for postoperative. Postop day 1 she was up and ambulating progressed to postop day 2 on postop day 1 3 pain was well controlled MARS drain decreasing appropriately. Denies any nausea vomiting or lightheadedness. Subsequently discharged home. Discharge orders instructions from the chart for further review. Total Time Total Time Spent Total Time Spent (In Minutes): 20 minutes Discharge Plan Discharge Items Patient Disposition: Home - Self-Care Reason For Visit: Radiculopathy, Lumbar Region Discharge Diagnosis: Lumbar spinal stenosis with radiculopathy Activity: As commented below Non-emergency contact: Primary Care Provider Call non-emergency contact if: you have any medication questions Follow-up/Referrals: Gm Betancourt M.D. [Primary Care Provider] - Diet: Regular Addtl Attending Provider Instructions: ACTIVITY RECOMMENDATIONS: SELF CARE INSTRUCTIONS AFTER THORACIC/LUMBAR FUSIONS 1. You may walk to your tolerance. It is good exercise for your legs and back. Expect some back and intermittent leg aches and pains. 2. You may perform "counter-top" level activities (make a sandwich, sandra with a project, etc.). 3. No bending or lifting of more than 10 pounds or back twisting of any nature (roll like a log when turning in bed). 4. You may ride in a car for 20-30 minutes at a time. No driving until after your first visit with your doctor. 5. Frequent changes of position and restricting sitting to 30 minutes at a time will help limit the amount of back spasms and stiffness you may experience. 6. You may discontinue the use of ambulatory aids (cane, crutches, etc.) once your strength and confidence allow. 7. 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 Do not take a tub bath, sit in a hot tub or go into a swimming pool until after your first recheck in the office. SPECIAL CARE INSTRUCTIONS: VERY IMPORTANT TO READ AND REVIEW A. Your surgical incision has been closed with a cosmetic suture under the skin that will dissolve in about 6 weeks. In 14 days, you can use a pair of clean scissors and cut the suture that is left outside of the skin at the ends of your incision. 1. The small skin tapes can be removed 7 days after surgery if they have not fallen off by that point. 2. You may keep the wound open to air as much as possible to promote healing after post-op day number 5 unless told otherwise by your doctor. 3. If you think the wound looks like it is becoming infected (redness or worsening drainage) and/or you are experiencing fever, chill or worsening back pain and muscle spasms, contact the office so that we may evaluate you as soon as possible. B. Complications are uncommon, but please contact us if you have any signs or symptoms of: 1. wound infection (fever higher than 102.5 degrees F, redness, separation of wound, drainage, or increasing pain from the incision) 2. blood clots in legs (pain, swelling, redness and warmth in legs) 3. urinary tract infection (fever higher than 102.5 degrees F, burning upon urination or increased frequency of urination) 4. nerve problems (inability to walk on your toes or heels, numbness, loss of bowel or bladder control) 5. any other symptoms that concern you C. Please call the office at if you have any concerns or questions about your operation or recovery. D. No smoking! Smoking drastically decreases the chance of a solid fusion. E. Do not take any anti-inflammatory medications (Indocin, Advil, Motrin, Aspirin, Naprosyn, etc.) as these may inhibit the chance of a solid fusion. Tylenol is okay to take for pain. MANAGING PAIN AFTER SPINAL SURGERY 1. Narcotic medication is intended for short-term use and will be provided for surgical pain. Surgical pain usually lasts for a period of 4-6 weeks. Narcotic medication includes Percocet, Vicodin, Darvocet, Tylenol #3 or Lortab. 2. Longer-term pain is more appropriately treated with non-narcotic medication such as Tylenol ES. 3. Muscle spasm is not appropriately treated with narcotics. Muscle relaxers such as Soma, Flexeril or Skelaxin can be used along with Tylenol ES. 4. Remember that we all live with some "aches and pains". This is not unusual or uncommon after an injury or as we get older. a. Back pain is expected and may include muscle spasms for 4 to 6 weeks after surgery. The pain should gradually improve. If the pain worsens for no apparent reason, please contact the office. b. Intermittent leg pain may also be experienced and should not be concerned about unless it worsens for no apparent reason. If so, please contact the office. 5. We will provide appropriate medication within the normal guidelines of their prescribed use. We will also be very cautious and aware of potential abuse and extended duration of patients' medication needs. a. Pain medications are for your comfort and to assist with sleep and rest so that the tissue can heal. They are not provided in order to return to normal activity and should not be used through the day. To do so or worsening pain at night can result from ongoing tissue damage and deve lopment of tolerance to the prescribed medicine. 6. Please allow 2-3 days to process refills. Prescriptions will not be mailed but must be picked up at the office. FOLLOW UP VISIT: Keep your scheduled follow-up appointment. Any questions, please call the office at . Pending Studies at Discharge: No Stand-Alone Forms: My Xanody[employer], Smoking Cessation Medications and DC Order Prescriptions: New tramadol 50 mg tablet 50 mg PO Q6H PRN (Reason: pain, moderate) Qty: 30 0RF Continued losartan-hydrochlorothiazide 100-25 mg Tablet 1 tab PO PM aspirin [Ecotrin] 325 mg Tablet,Delayed Release (Dr/Ec) 325 mg PO PM metformin 1,000 mg Tablet 1,000 mg PO BID enoxaparin [Lovenox] 80 mg/0.8 mL Syringe 80 mg SUBCUT Q12H tramadol 50 mg Tablet 50 mg PO Q4H PRN (Reason: Pain, Moderate) Qty: 30 0RF oxycodone 5 mg Tablet 5 mg PO Q4H PRN (Reason: Pain, Severe) Qty: 30 0RF lorazepam 0.5 mg Tablet 0.5 mg PO Q8H Qty: 20 0RF montelukast 10 mg Tablet 10 mg PO HS cholecalciferol (vitamin D3) [Vitamin D3] 25 mcg (1,000 unit) Tablet 25 mcg PO QAM albuterol sulfate 90 mcg/actuation Hfa Aerosol Inhaler 2 inh INHALATION QID PRN (Reason: Cough) Discharge Orders: Discharge Order (Routine); Ordered 02/09/22 Ordered By: David Recinos Admission Data Admit Date/Time: 02/06/22 09:37 Attending Provider: David Recinos Admit Provider: David Recinos Primary Care Provider: Gm Betancourt Other Providers: Josue Anderson Jonathan M.
--- NOTE | 2022-02-09 09:15 | Hospitalist Progress Note ---
Date of Service February 09, 2022 Assessment & Plan (1) Spinal stenosis, lumbar region with neurogenic claudication: Plan: s/p lumbar decompression and posterior fusion today. Pain management per surgery (2) Postoperative anemia: Plan: Hgb stable at 8.2 Can resume aspirin on discharge Recommend ferrous sulfate 325mg PO QOD on discharge -> will avoid as inpatient as she has problems with constipation here, added to discharge instructions (3) HTN (hypertension): Plan: Recommend cutting her usual medications in half until PCP follow up. If any dizziness or lightheadedness to stop altogether and urgently follow up with PCP. (4) DM II (diabetes mellitus, type II), controlled: Plan: HbA1C 6.8 Resume metformin on discharge (5) Factor V Leiden: Plan: Previously listed as factor V deficiency however this would not make sense why she would be treated pre-operatively with Lovenox and be treated with aspirin. Patient does confirm she has factor V leiden rather than a deficiency however unknown if she is heterozygous or homozygous. I suspect that the former given she has never had a deep vein thrombosis or pulmonary embolus in the past (there is an 80 fold increase in DVT risk for homozygous carriers compared to 7-fold increase with heterozygous). There is no significant urgency to restart anticoagulation/antiplatelets above which was what would be recommended for someone without heterozygous factor V. Highly suggest the patient discusses with the PCP her correct diagnosis. May resume aspirin on discharge per surgical recommendation (6) Asymptomatic bacteriuria: Plan: E. coli in urine pre-operatively. No urinary Sx at that time per patient. Current UA during admissionreassuringly clear. Plan Patient reportedly being discharged today. Discharge instructions from medicine team done and medications prescribed. Lovenox discontinued (this was only for pre-op). Admission and Anticipated Discharge Date Admission Date: February 06, 2022 Subjective No acute concerns or questions. No lightheadedness, dizziness, chest pain or shortness of breath Review of Systems Review of Systems: All systems reviewed & are unremarkable except as noted in Subjective Physical Exam Constitutional: WD/WN, vitals as above Respiratory: normal respiratory effort, lungs clear to auscultation Cardiovascular: RRR, no murmur, no edema Results & Data Results & Data ([facility]) Vital Signs (Past 12 Hours) Vital Signs Temp Pulse Resp BP Pulse Ox O2 Del Method 02/09/22 07:56 36.6 C 55 L 18 106/64 98 Room Air 02/08/22 23:12 36.9 C 59 L 18 114/58 L 97 Room Air PG Care Time/CCT Total # of Minutes Spent Total Time Spent with Patient: Total time spent is greater than 50% in coordination of care (as documented) at patient's floor/unit and/or counseling patient: Coding Level of Care Code 78116 Subseq Hosp Care Lvl 1 Diagnoses Spinal stenosis, lumbar region with neurogenic claudication M48.062 Postoperative anemia D64.9 HTN (hypertension) I10 DM II (diabetes mellitus, type II), controlled E11.9 Factor V Leiden D68.51 Asymptomatic bacteriuria R82.71
[2022-02-09] MEDS: dexAMETHasone 4 MG in SYRINGE 0 ML IV SCH (09:46)
[2022-02-09] MEDS: CHOLECALCIFEROL 1,000 UNITS 25 MCG TAB PO SCH (09:47)
[2022-02-09] MEDS: INSULIN HUMAN NPH SC SCH (09:47)
[2022-02-09] MEDS: INSULIN ASPART PER UNIT SC SCH ×2 (09:52→13:21)
[2022-02-09] MEDS: traMADol HCL 50 MG TABLET PO PRN ×2 (09:52→14:50)
== END 2022-02-09 15:17 | disposition home health service (06) | DRG 454 ==
LOC: ASU 06:10 → PACUINP 09:37 → 3N 13:07